=== PATIENT | female | born 1960 | race Caucasian/White ===

== ENCOUNTER 2023-04-07 15:44 | Outpatient (CLI) | payer OTHER, SELFPAY ==
--- NOTE | ~2023-04-07 | MM_ITS ---
EXAMINATION: MM screening ayo BI w kassandra HISTORY: Screening mammogram TECHNIQUE: Craniocaudal and mediolateral oblique 3-D tomosynthesis images were obtained and synthetic 2-D images were generated. CAD analysis was submitted and interpreted. COMPARISON: No prior mammogram is available for comparison at this institution. BREAST PARENCHYMAL COMPOSITION: The breasts are heterogeneously dense, which may obscure small masses . FINDINGS: RIGHT BREAST: An asymmetry is present in the posterior third of the lower breast on the mediolateral oblique view. LEFT BREAST: An asymmetry is present in the posterior third in line with the nipple axis on the medio lateral oblique view. IMPRESSION: 1. Bilateral breast asymmetries which may represent the patient's baseline however no comparison is c urrently available. 2. Comparison with prior mammograms is necessary. BI-RADS Category 0: Incomplete: Needs comparison with prior mammograms. Reviewed, dictated and finalized at location A. IMPRESSION: 1. Bilateral breast asymmetries which may represent the patient's baseline mack desmond no comparison is currently available. 2. Comparison with prior mammograms is necessary. BI-RADS Category 0: Incomplete: Needs comparison with prior mammograms.
== END 2023-04-07 15:45 | disposition home or self-care (01) ==
LOC: ANHIMG 15:47
PROVIDERS: PCP Family Medicine; Visit Provider Obstetrics & Gynecology
DX: Z12.31 Encounter for screening mammogram for malignant neoplasm of breast (principal); N64.89 Other specified disorders of breast
CPT/HCPCS: 77063; 77067

== ENCOUNTER 2024-02-23 10:18 | Outpatient (CLI) | payer MEDICARE, SELFPAY ==
--- NOTE | 2024-02-23 | ECG_ITS ---
Measurements Intervals [place] Rate: 63 P: 18 NC: 173 QRS: -24 QRSD: 104 T: 13 QT: 407 QTc: 418 Interpretive Statements SINUS RHYTHM BASELINE ARTIFACT LOW QRS VOLTAGE IN PRECORDIAL LEADS CANNOT RULE OUT ANTERIOR MYOCARDIAL INFARCTION, PROBABLY OLD BORDERLINE ECG NO PREVIOUS ECG AVAILABLE FOR COMPARISON Electronically Signed On 02-23-2024 14:37:38 CDT by Jeremiah Santos M.D.
== END 2024-02-23 10:19 | disposition home or self-care (01) ==
LOC: ANHLAB 10:35 → ANHCARD 10:36
PROVIDERS: PCP Internal Medicine
DX: R93.1 Abnormal findings on diagnostic imaging of heart and coronary circulation (principal); M20.10 Hallux valgus (acquired), unspecified foot
CPT/HCPCS: 93005

== ENCOUNTER 2024-03-25 10:11 | Emergency (ER) | payer MEDICARE, SELFPAY ==
[2024-03-25 10:21] VITALS: BP 130/71; PULSE 86; RESP 16; TEMP 36.9; O2SAT 100
--- NOTE | 2024-03-25 10:21 | ED.SKABFB ---
HPI - Skin/Abscess/Foreign Bdy General Chief complaint: Skin/Abscess/Foreign Body Stated complaint: RASH Time Seen by Provider: 03/25/24 10:19 Source: patient and RN notes reviewed Mode of arrival: ambulatory Limitations: no limitations History of Present Illness HPI narrative: 63-year-old female presents concern for rash to her left axilla. She reports she noticed it 2 days ago. She reports pain radiates to her left breast. She denies fever, aches, chills, sweats MD complaint: rash Related Data Home Medications Medication Instructions Recorded Confirmed estradiol 0.01% (0.1 mg/gram) 0.5 appful vaginal 3XW 01/28/24 03/25/24 vaginal cream ezetimibe 10 mg tablet 10 mg PO DAILY 01/28/24 03/25/24 Allergies Allergy/AdvReac Type Severity Reaction Status Date / Time No Known Allergies Allergy Mild Verified 03/25/24 10:18 Review of Systems Review of Systems: CONSTITUTIONAL: Denies malaise, chills, sweats, or fever. EYES: Denies redness, or discharge. ENT: Denies rhinorrhea, congestion, swollen lips, swollen tongue CARDIOVASCULAR: Denies chest pain, palpitations, or edema. RESPIRATORY: Denies cough or dyspnea. GASTROINTESTINAL: Denies abdominal pain, nausea, vomiting SKIN: Reports rash under her left axilla MUSCULOSKELETAL: Denies joint pain or myalgia. NEUROLOGIC: Denies headache. All systems reviewed & are unremarkable except as noted in HPI and below PMFSH Past Medical History Medical History (Updated 03/25/24 @ 10:28 by Niya Kimball NP) Hypertension Prediabetes Surgical History Surgical History (Updated 01/28/24 @ 09:02 by Dulce Rose CMA) History of abdominal hysterectomy (~2003) Family History Family History (Updated 01/28/24 @ 09:05 by Dulce Rose CMA) Father Hypertension Heart disease Testicular cancer Malignant neoplasm of prostate Mother Anxiety and depression Social History Social History (Updated 01/28/24 @ 09:15 by Dulce Rose CMA) Smoking status: Never smoker Additional smoking assessment comments: does not smoke Alcohol use details: occasional Substance use type: does not use Lack of Transportation: No Lack of Food: Never True Current Housing: I Have Housing Concerned About Future Housing: No Difficulty Paying Gas/Electric Bills: No Difficulty Paying for Meds: No Currently Unemployed: No Education: High School Diploma/GED Difficulty w/ Childcare or Family Care: No Comments At time of signature, agree with nursing past medical, surgical, social and family history. There is no relevant family history pertinent to the presenting complaint Exam Narrative: GENERAL: Well-appearing, well-nourished, and in no acute distress. HEAD: Normocephalic, atraumatic. EYES: PERRLA, conjunctivae clear, and EOMI. ENT: Mucous membranes moist. Oropharynx without edema, erythema or lesions. NECK: Supple. No lymphadenopathy CHEST: Clear to auscultation. No respiratory distress. HEART: Regular rate and rhythm. SKIN: Warm, dry. Zosteriform rash noted on the left axilla NEURO: Alert and oriented x3. PSYCH: Normal mood and affect Course Course Emergency Course: Patient is aware of diagnosis, understands and agrees to treatment plan. Anticipatory guidance given. Patient agrees to follow-up as directed and is aware of reasons to seek care at the emergency department. Portions of this record may have been created with voice recognition software Level of Care: Express Care Visit Vital Signs Vital signs: Reviewed. MDM - Skin/Abscess/Foreign Bdy MDM Narrative Medical decision making narrative: Does not appear at this time to be erythema multiforme, bullous, SJS, TEN; no evidence at this time to suggest RMSF, endocarditis or Lyme disease; patient looks well, nontoxic and is tolerating oral intake; no neurologic signs or symptoms; no headache, photophobia or neck pain; afebrile; appropriate for initial outpatient treatment; discussed the
== END 2024-03-25 10:34 | disposition home or self-care (01) ==
PROVIDERS: Emergency Provider Nurse Practitioner; PCP Internal Medicine
DX: B02.9 Zoster without complications (principal); I10 Essential (primary) hypertension; R73.03 Prediabetes
CPT/HCPCS: 99213; G0463

== ENCOUNTER 2024-05-26 13:39 | Outpatient (CLI) | payer MEDICARE, SELFPAY ==
--- NOTE | ~2024-05-26 | MM_ITS ---
EXAMINATION: MM screening ayo BI w kassandra HISTORY: Screening mammogram TECHNIQUE: Craniocaudal and mediolateral oblique 3-D tomosynthesis images were obtained and synthetic 2-D images were generated. CAD analysis was submitted and interpreted. COMPARISON: 04/07/2023, 02/12/2022, 01/30/2021 BREAST PARENCHYMAL COMPOSITION:Dense: The breasts are heterogeneously dense, which may obscure small masses. FINDINGS: No suspicious mass, calcification, or architectural distortion are identified in either jameel ast to suggest malignancy. There has been no suspicious interval change. IMPRESSION: No mammographic evidence of malignancy. Recommend routine screening mammography in one year. BI-RADS Category 1: Negative Reviewed, dictated and finalized at location .
== END 2024-05-26 13:40 | disposition home or self-care (01) ==
LOC: ANHIMG 13:40
PROVIDERS: PCP Internal Medicine; Visit Provider Nurse Practitioner
DX: Z12.31 Encounter for screening mammogram for malignant neoplasm of breast (principal)
CPT/HCPCS: 77063; 77067

== ENCOUNTER 2024-07-03 11:47 | Outpatient (CLI) | payer MEDICARE, SELFPAY ==
--- NOTE | ~2024-07-03 | DEXA_ITS ---
Bone Density Report Name: MARYSOL RENDON Age: 63 Sex: Female Ethnicity: White Date of : 1960 Indication: postmenopausal; screening for osteoporosis; height loss; hysterectomy; Referring Provider: DONNA LARA Study: Bone densitometry was performed. Exam Date: July 03, 2024 Accession number: [id number] Bone Density: Region BMD T-score Z-score Classification AP Spine(L1-L4) 0.951 -0.9 0.9 Normal Femoral Neck (Left) 0.603 -2.2 -0.7 Osteopenia Total Hip (Left) 0.772 -1.4 -0.1 Osteopenia Femoral Neck (Right) 0.685 -1.5 0.1 Osteopenia Total Hip (Right) 0.907 -0.3 1.0 Normal Total Hip Mean 0.839 -0.9 0.5 Normal World Health Organization criteria for BMD impression classify patients as: Normal (T-score at or above -1.0), Osteopenia (T-score between -1.0 and -2.5), or Osteoporosis (T-score at or below -2.5). 10-year Fracture Risk(1): Major Osteoporotic Fracture 10.0% Hip Fracture 1.8% Reported Risk Factors: [place] (), Neck BMD=0.603, BMI=19.9 (1) FRAX(R) Version 3.08. Fracture probability calculated for an untreated patient. Fracture probability may be lower if the patient has received treatment. Clinical Information Provided by Patient: Has used the following medications: Vitamin D Has the following medical conditions: Hysterectomy Patient maximum height was 67.0 No regular weight bearing exercise Does not regularly consume dairy products Drinks caffeinated beverages Onset of menses at age 12 Number of children 2 Impression: The patient has low bone mass, based on the Left Femoral Neck T-score. The patient has an estimated ten-year risk of hip fracture of 1.8% and an estimated ten-year risk of major fracture of 10%, based on the WHO FRAX algorithm. Discussion: BONE DENSITY IS LOW AT ONE OR MORE SKELETAL SITES. This patient's lowest T-score is low at one or more skeletal sites. It meets the World Health Organization's (WHO) criteria for ?low bone mass? (T-score between -1.0 and -2.5). The patient's 10-year risk of fracture as calculated by FRAX is less than the threshold where pharmacological therapy is recommended by the National Osteoporosis Foundation (NOF). However, all treatment decisions require clinical judgment and consideration of individual patient factors, including patient preferences, comorbidities, previous drug use, risk factors not captured in the FRAX model (e.g., frailty, falls, vitamin D deficiency, increased bone turnover, interval significant decline in bone density) and possible under or overestimation of fracture risk by FRAX. The patient should follow a healthful lifestyle (good nutrition with adequate calcium and vitamin D, and appropriate weight-bearing exercise). Follow-Up: Consider repeating this study in 2 to 3 years to reasse
== END 2024-07-03 11:48 | disposition home or self-care (01) ==
LOC: ANHIMG 11:48
PROVIDERS: PCP Internal Medicine; Visit Provider Obstetrics & Gynecology Gynecology
DX: M85.89 Other specified disorders of bone density and structure, multiple sites (principal); Z78.0 Asymptomatic menopausal state; Z13.820 Encounter for screening for osteoporosis
CPT/HCPCS: 77080

== ENCOUNTER 2025-03-02 08:26 | Outpatient (NON) | payer MEDICARE, SELFPAY ==
--- OUTSIDE RECORDS SUMMARY | 2025-03-02 08:34 | XMS_ITS | Clinical Summary ---
Author Organization [facility] Address [address] [place] [address] Phone Care Team Providers Care System Support Specialist Name Role Phone Anyi Keyes NP Primary Care Provider Allergies No known active allergies Medications hydroCHLOROthiaz america (HYDRODIURIL) 25 mg tablet Take 1 tablet (25 mg total) by mouth daily Active estradioL (ESTRACE) 0.01 % (0.1 mg/gram) vaginal cream Insert 2 g into the vagina daily Active Active Problems Problem Noted Date Diagnosed Date Varicose veins of bilateral lower extremities wi th pain 05/17/2024 Assessment & Plan (05/17/2024 8:58 AM CDT): Impression: Patient complains of achiness to bilateral lower extremities with her right worse than the left. She denies any history of DVTs/PEs or hypercoagulable state. She also denies any symptoms of claudication, ischemic rest pain or ulcerations to her lower extremity. Patient does not utilize compression therapy at this time. Patient has reticular veins to the right upper thigh and bilateral ankles. No varicosities are noted. Plan: Recommend compression stockings, 20 30 mmHg to be utilized daily. -patient would like referral to Dr. Godoy for further evaluation of reticular veins. -patient to follow up on an as-needed basis. Primary hypertension 05/17/2024 Assessment & Plan (05/17/2024 8:58 AM CDT): Impression: Chronic and stable. Plan: Continue hydrochlorothiazide. 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 Gender Identity Not on file Sexual Orientation Not on file Last Filed Vital Signs Vital Sign Reading Time Taken Comments Blood Pressure 134/83 05/17/2024 8:44 AM CDT Pulse 53 05/17/2024 8:44 AM CDT Temperature - - Respiratory Rate - - Oxygen Saturation 100% 05/17/2024 8:44 AM CDT Inhaled Oxygen Concentration - - Weight - - Height - - Body Mass Index - - Plan of Treatment Health Maintenance Due Date Last Done Comments Colon Cancer Screening-Colonoscopy 1960 Depression Screening 1960 Fall Risk Assessment 1960 Hepatitis C Screening 1960 Osteoporosis Screening-Bone Density Scan 1960 Hepatitis B Screening 1976 Pneumococcal vaccine 65+ (1 of 1 - PCV) 2008 Zoster Vaccine (1 of 2) 2008 Well Visit 65+ 2023 Breast Cancer Screening-Mammogram 05/03/2024 023, 04/07/2023 Covid-19 Vaccine (4 - 2023-2 5 season) 2024 05/12/2022, 07/01/2021, 06/10/2021 Influenza Vaccine (#1) 2024 , 09/24/2021, 09/19/2020, Additional history exists DTaP/Tdap/Td Vaccine (2 - Td or Tdap) 09/19/2029 09/19/2019 Insurance Care Teams System Support Specialist Relationship Specialty Start Date End Date Anyi Keyes NP PCP - General Nurse Practitioner 04/25/24
--- OUTSIDE RECORDS SUMMARY | 2025-03-02 08:34 | XMS_ITS | Referral Summary ---
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
== END 2025-03-02 08:27 | disposition home or self-care (01) ==
LOC: ANHGOSHLAB 08:26
PROVIDERS: PCP Nurse Practitioner; Visit Provider Student in an Organized Health Care Education/Training Program
DX: R39.9 Unspecified symptoms and signs involving the genitourinary system (principal)
CPT/HCPCS: 87077; 87086; 87186

== ENCOUNTER 2025-04-04 08:18 | Outpatient (CLI) | payer MEDICARE, SELFPAY ==
--- OUTSIDE RECORDS SUMMARY | 2025-04-04 08:30 | XMS_ITS | Data Portability ---
Author Organization [facility] [employer], Main Office Address [address] [place] [address] Assessment No assessment recorded. Plan of Treatment Reminders Order Date Submit Date Provider Last Modified By Organization Details Last Modified Time Details Appointments None recorded. Lab hemoglobin A1C, fingerstick 2022 023 [facility] [address], [place], [address], 09:04:30 Referral None recorded. Procedures None recorded. Surgeries None recorded. Imaging None recorded. Medication Orders ezetimibe 10 mg tablet 2022 023 [facility], [address] [place] [address], [address], 3 10:41:43 erythromyci n 5 mg/gram (0.5 %) eye ointment 2022 023 [facility], [address] [place], [address], 3 13:05:37 Patient TargetsNo targets recorded. Patient InstructionsNo instructions recorded. Reason for Referral None Reported. Results Created Date Observation Date Name Description Value Unit Range Abnormal Flag Note LastModifiedBy Organization Detail LastModifiedTime 10/13/20 22 10/14/2022 COMPR EHENS CECILE METAB OLIC PANEL glucose 107 mg/dL 65-99 high Fasti ng refer ence inter jeferson For someo ne witho ut known diabe keely, a gluco se value betwe en 100 and 125 mg/dL is consi stent with predi abete s and shoul d be confi rmed with a follo w-up test. Not Available [address], [address], 10/14/2022 04:16:36 10/13/20 22 10/14/2022 COMPR EHENS CECILE METAB OLIC PANEL urea nitrogen (BUN) 13 mg/dL 7-25 normal Not Available [address] [address] [place], [address], 10/14/2022 04:16:36 10/13/20 22 10/14/2022 COMPR EHENS CECILE METAB OLIC PANEL creatinine 0.59 mg/dL 0.50-1 .05 normal Not Available [address], [address], 10/14/2022 04:16:36 10/13/20 22 10/14/2022 COMPR EHENS CECILE METAB OLIC PANEL eGFR 101 mL/mi n/1.7 3m2 > or = 60 normal The eGFR is based on the CKD-E PI 2020 equat ion. To calcu late the new eGFR from a previ ous Creat inine or Cysta tin C resul t, go to https ://perez blackwell.garrick uribe/sara pham s/ kdoqi /gfr% 5Fcal culat or Not Available [address] [address] [place], [address], 10/14/2022 04:16:36 10/13/20 22 10/14/2022 COMPR EHENS CECILE METAB OLIC PANEL BUN/creatini ne ratio not applic able (calc ) 6-22 Not Available [address], [address], 10/14/2022 04:16:36 10/13/20 22 10/14/2022 COMPR EHENS CECILE METAB OLIC PANEL sodium 143 mmol/ L 135-14 6 normal Not Available [address] [place], [address], 10/14/2022 04:16:36 10/13/20 22 10/14/2022 COMPR EHENS CECILE METAB OLIC PANEL potassium 3.8 mmol/ L 3.5-5. 3 normal Not Available [address], [address], 10/14/2022 04:16:36 10/13/20 22 10/14/2022 COMPR EHENS CECILE METAB OLIC PANEL chloride 103 mmol/ L 98-110 normal Not Available [address], [address], 10/14/2022 04:16:36 10/13/20 22 10/14/2022 COMPR EHENS CECILE METAB OLIC PANEL carbon dioxide 28 mmol/ L 20-32 normal Not Available [address], [address], 10/14/2022 04:16:36 10/13/20 22 10/14/2022 COMPR EHENS CECILE METAB OLIC PANEL calcium 10.0 mg/dL 8.6-10 .4 normal Not Available [address], [address], 10/14/2022 04:16:36 10/13/20 22 10/14/2022 COMPR EHENS CECILE METAB OLIC PANEL protein, total 7.0 g/dL 6.1-8. 1 normal Not Available [address], [address], 10/14/2022 04:16:36 10/13/20 22 10/14/2022 COMPR EHENS CECILE METAB OLIC PANEL albumin 4.4 g/dL 3.6-5. 1 normal Not Available [address], [address], 10/14/2022 04:16:36 10/13/20 22 10/14/2022 COMPR EHENS CECILE METAB OLIC PANEL alkaline phosphatase 68 U/L 37-153 normal Not Available [address], [address], 10/14/2022 04:16:36 10/13/20 22 10/14/2022 COMPR EHENS CECILE METAB OLIC PANEL globulin 2.6 g/dL_ (calc ) 1.9-3. 7 normal Not Available [address], [address], 10/14/2022 04:16:36 10/13/20 22 10/14/2022 COMPR EHENS CECILE METAB OLIC PANEL albumin/glob ulin ratio 1.7 (calc ) 1.0-2. 5 normal Not Available [address], [address], 10/14/2022 04:16:36 10/13/20 22 10/14/2022 COMPR EHENS CECILE METAB OLIC PANEL bilirubin, total 0.4 mg/dL 0.2-1. 2 normal Not Available [address], [address], 10/14/2022 04:16:36 10/13/20 22 10/14/2022 COMPR EHENS CECILE METAB OLIC PANEL AST 18 U/L 10-35 normal Not Available [address], [address], 10/14/2022 04:16:36 10/13/20 22 10/14/2022 COMPR EHENS CECILE METAB OLIC PANEL ALT 11 U/L 6-29 normal Not Available [address], [address], 10/14/2022 04:16:36 10/13/20 22 10/14/2022 LIPID PANEL , STAND CLAIRE cholesterol, total 197 mg/dL <200 normal Not Available [address], [address], 10/14/2022 04:16:36 10/13/20 22 10/14/2022 LIPID PANEL , STAND CLAIRE HDL cholesterol 60 mg/dL > or = 50 normal Not Available [facility] [address] [place], [address], 10/14/2022 04:16:36 10/13/20 22 10/14/2022 LIPID PANEL , STAND CLAIRE triglyceride s 99 mg/dL <150 normal Not Available [address], [address], 10/14/2022 04:16:36 10/13/20 22 10/14/2022 LIPID PANEL , STAND CLAIRE LDL-choleste rol 116 mg/dL _(jose c) high Refer ence range : <100 Marcia able range <100 mg/dL for prima ry preve ntion ; <70 mg/dL for patie nts with CHD or diabe tic patie nts with > or = 2 CHD risk facto rs. LDL-C is now calcu lated using the Cass n-Hop kins calcu tiff n, which is a valid ated novel obinna john than the Fried raymon equat ion in the estim ation of LDL-C . Cass dela cruz SS et al. MEAGHAN. 2013; 310(1 9): 2061- 2068 (http ://ed ucati on.Bala burnett [employer]. com/f aq/FA Q164) Not Available [facility] [address] [place], [address], 10/14/2022 04:16:36 10/13/20 22 10/14/2022 LIPID PANEL , STAND CLAIRE chol/HDLC ratio 3.3 (calc ) <5.0 normal Not Available [facility] [address] [place] [address], [address], 10/14/2022 04:16:36 10/13/20 22 10/14/2022 LIPID PANEL , STAND CLAIRE non HDL cholesterol 137 mg/dL _(jose c) <130 high For patie nts with diabe keely plus 1 major ASCVD risk facto r, treat ing to a non-H DL-C goal of <100 mg/dL (LDL- C of <70 mg/dL ) is consi dered a thera peuti c optio n. Not Available [employer] [facility] [address] [address], [place], [address], 10/14/2022 04:16:36 12/09/1912/09/2022 COLOG UARD cologuard result reportable negati ve negati ve NEGAT CECILE TEST RESUL T. A negat cecile Colog uard resul t indic ates a low likel ihood that a color ectal cance r (CRC) or advan erica adeno ma (manuel omato us polyp s with more advan erica pre-m align ant featu res) is prese nt. The chanc e that a perso n with a negat cecile Colog uard test has a color ectal cance r is less than 1 in 1500 (nega tive predi ctive value >99.9 %) or has an advan erica adeno ma is less than 5.3% (nega tive predi ctive value 94.7% ). These data are based on a prosp ectiv e cross -sect ional study of ,00 0 indiv idual s at [place] ge risk for color ectal cance r who were scree mervat with both Colog uard and colon oscop y. (Harpreet Santiago et al, N Engl J Med 2014; 370(1 4):12 86-12 97) The jim l value (refe rence range ) for this assay is negat cecile. COLOG UARD RE-SC REENI NG RECOM MENDA TION: Perio dic color ectal cance r scree domingo is an impor tant part of preve ntive healt hcare for asymp tomat ic indiv idual s at [place] ge risk for color ectal cance r. Follo wing a negat cecile Colog uard resul t, the Ameri can Cance r Socie ty and U.S. Multi -Soci ety Task Force scree domingo guide lines recom mend a Colog uard re-sc shamar ng inter jeferson of 3 years . Refer ences : [place] can Cance r Socie ty Guide line for Color ectal Cance r Scree domingo: https ://perez w.can cer.o rg/ca ncer/ colon -rect al-ca ncer/ detec tion- diagn osis- stagi ng/ac s-rec ommen datio ns.ht ml.; Delroy MCKEON, Mohan ALMARAZ, Vijaya bullard JK, Color ectal Cance r Scree domingo: Recom menda tions for Physi cians and Patie nts from the U.S. Multi -Soci ety Task Force on Color ectal Cance r Scree domingo , Terence fournier rolog y 2017; 112:1 016-1 030. TEST DESCR IPTIO N: [place] site algor ithmi c eduin sis of stool DNA-b iomar kers with hemog lobin immun oassa y. Quant itati ve value s of indiv idual bioma rkers are not repor table and are not assoc iated with indiv idual bioma rker resul t refer ence range s. Colog uard is inten ded for color ectal cance r scree domingo of adult s of eithe r sex, 45 years or older , who are at [facility] for color ectal cance r (CRC) . Colog uard has been appro niecy for use by the U.S. FDA. The perfo rmanc e of Colog uard was estab lishe d in a cross secti onal study of [facility] adult s aged 50-84 . Colog uard perfo rmanc e in patie nts ages 45 to 49 years was estim ated by sub-g roup eduin sis of near- age group s. Colon oscop ies perfo rmed for a posit cecile resul t may find as the most clini taniya signi fican t lesio n: color ectal cance r [4.0% ], advan erica adeno ma (incl uding sessi le martha kishan polyp s great er than or equal to 1cm diame ter) [20%] or non- advan erica adeno ma [31%] ; or no color ectal neopl rafael [45%] . These estim ates are deriv ed from a prosp ectiv e cross -sect ional scree domingo study of ,00 0 [facility]ual [facility] ectal cance r who were scree mervat with both Colog uard and colon oscop y. (Harpreet Santiago et al, N Engl J Med 2014; 370(1 4):12 86-12 97.) Colog uard may produ ce a false negat cecile or false posit cecile resul t (no color ectal cance r or preca ncero us polyp prese nt at colon oscop y follo w up). A negat cecile Colog uard test resul t does not guara ntee the absen ce of CRC or advan erica adeno ma (pre- cance r). The curre nt Colog uard scree domingo inter jeferson is every 3 years . (Amer ican Cance r Socie ty and U.S. Multi -Soci ety Task Force ). Colog uard perfo rmanc e data in a 0 patie nt pivot al study using colon oscop y as the refer ence metho d can be acces sed at the follo wing locat ion: www.e xactl abs.c om/re anders . Addit ional descr iptio n of the Colog uard test proce ss, warni ngs and preca ution s can be found at www.c maryluu claire.c om. Not Available [employer] (Cologuard Orders Only) [address], [place], [address], 12/14/2022 17:27:21 12/24/19 23 12/24/2022 hemog lobin A1C, finge rstic k HgbA1C 5.8 Not Available [facility] [address] , [address], [place], [address], 12/23/2022 16:22:38 05/17/20 23 05/17/2023 hemog lobin A1C, finge rstic k HgbA1C 6 Not Available [facility] [address], [place], [address], 05/14/2023 09:28:26 04/07/2004/07/2023 MAMMO , scree domingo, bilat eral No observ ation record ed. [address], [place], [address], 04/08/2023 09:11:08 05/03/2004/07/2023 MAMMO , scree domingo, bilat eral No observ ation record ed. [address], [place], [address], 05/03/2023 14:34:41 Result Notes None recorded. Problems Name Problem SNOMED Code Status Onset Date Resolution Date Notes Provider Name and Address Organization Details Recorded Time Increased blood pressure 06629518 Active Not Available [facility] 3 07:33:06 Edema 315047068 Active Not Available [facility] 3 07:33:07 Hypertensi ve disorder 44914113 Active Not Available [facility] 3 07:33:07 Onychomyco sis 530623863 Active Not Available [facility] 3 07:33:07 Bunion 976800992 Active Not Available [facility] 3 07:33:07 Fibroma 532381543 Active Not Available [facility] 3 07:33:07 Foot pain 24735315 Active Not Available [facility] 3 07:33:07 Essential hypertensi on 24467165 Active Not Available [facility] 3 07:33:07 Capsulitis 6943359 Active Not Available [facility] 3 07:33:07 Prediabete s 778362643 Active 2022 Antwon Munguia MD [address], [place], [address] , [facility] [employer] 3 09:28:23 Upper respirator y infection 79978446 Active 2022 Antwon Munguia MD [address] [facility], [facility] [address], [place], [address] , [employer] [facility] 3 13:47:44 Blephariti s of right eyelid 0119310659668 03 Active 2022 Antwon Munguia MD [address] [facility] [address], [place], [address] , [employer] 3 13:04:29 Chalazion of upper eyelid 083322517 Active 2022 Antwon Munguia MD [address] [facility], [facility] [address], [place], [address] , [employer] 3 19:49:12 Hyperlipid emia 97119984 Active 2022 DELMAR Ledezma [address] [facility], [facility] [address], [place], [address] , [employer] 3 10:39:10 COVID-19 508844567 Active 2023 Priya Vigil RN [facility], [employer] 4 12:06:28 Problem Notes None recorded. Procedures Surgical History Date Name Laterality Status Provider Name and Address Organization Details Recorded Time 2 mammography completed Not Available [facility] 01/21/20 23 07:27:23 9 Colonoscopy completed Not Available [facility] 01/21/20 23 07:27:23 4 hysterectomy completed Not Available [facility] 023 07:27:23 Imaging Results Imaging Date Name Status LastModified by [facility] Details LastModified Time 04/07/2023 MAMMO, screening, bilateral completed [address] [place] [address], [address], 04/08/2023 09:11:08 04/07/2023 MAMMO, screening, bilateral completed [address], [address], 05/03/2023 14:34:41 Procedure Notes None recorded. Medical Equipment None Reported. Allergies No known drug allergies Medications Name Sig Start Date Stop Date Status Note LastModified by Organization Details LastModified Time amoxicillin 500 mg capsule TAKE 1 CAPSULE BY MOUTH THREE TIMES DAILY UNTIL GONE 09/15 completed Not Available Not Available Not Available clindamycin HCl 300 mg capsule 12/23 completed Not Available Not Available Not Available azithromyci n 250 mg tablet TAKE 2 TABLETS BY MOUTH ON DAY 1, AND THEN TAKE 1 TABLET BY MOUTH ONCE A DAY ON DAY 2 THROUGH DAY 5 12/23 completed Not Available Not Available Not Available ibuprofen 800 mg tablet Take 1 tablet 3 times a day by oral route as needed. active Not Available Not Available No t Available hydrocodone 5 mg-acetamin ophen 325 mg tablet TAKE 1 TABLET BY MOUTH EVERY 4 TO 6 HOURS NEEDED FOR PAIN 09/15 completed Not Available Not Available Not Available alendronate 70 mg tablet 09/15 completed Not Available Not Available Not Available ciprofloxac in 500 mg tablet TAKE 1 TABLET BY MOUTH TWICE DAILY DIRECTED FOR 7 DAYS active Not Available Not Available No t Available terbinafine HCl 250 mg tablet Take 1 tablet every day by oral route. 09/15 completed Not Available Not Available Not Available amoxicillin 875 mg tablet TAKE 1 TABLET BY MOUTH TWICE DAILY UNTIL ALL TAKEN 09/15 completed Not Available Not Available Not Available erythromyci n 5 mg/gram (0.5 %) eye ointment APPLY A 1 CM RIBBON INTO THE LOWER EYE LID OF THE AFFECTED EYE(S) 3 TIMES DAILY active Not Available Not Available No t Available neomycin-po lymyxin-dex ameth 3.5 mg/mL-10,00 0 unit/mL-0.1 % eye drops INSTILL 1 DROP INTO EACH EYE 4 TIMES DAILY FOR 1 WEEK 09/15 completed Not Available Not Available Not Available diclofenac sodium 75 mg tablet,tori yed release Take 1 tablet twice a day by oral route. 09/19 completed Not Available Not Available Not Available hydrochloro thiazide 25 mg tablet TAKE 1 TABLET BY MOUTH ONCE DAILY active Not Available Not Available No t Available estradiol 0.01% (0.1 mg/gram) vaginal cream INSERT 0.5 G INTRAVAGI MENDEZ THREE TIMES WEEKLY active Not Available Not Available No t Available methylpredn isolone 4 mg tablets in a dose pack TAKE BY MOUTH DIRECTED ON INSIDE OF PACKAGE 09/15 completed Not Available Not Available Not Available metformin ER 500 mg tablet,exte nded release 24 hr TAKE 1 TABLET BY MOUTH ONCE DAILY active Not Available Not Available No t Available amoxicillin 500 mg-potassiu m clavulanate 125 mg tablet TAKE 1 TABLET BY MOUTH EVERY 8 HOURS FOR 10 DAYS 11/17 completed Not Available Not Available Not Available ezetimibe 10 mg tablet TAKE 1 TABLET BY MOUTH ONCE DAILY IN THE MORNING 2023 active Not Available Not Available Not Avai lable nitrofurant oin monohydrate /macrocryst als 100 mg capsule TAKE 1 CAPSULE BY MOUTH TWICE DAILY FOR 3 DAYS 09/15 completed Not Available Not Available Not Available Trimo-Hugo Jelly 0.025 %-0.01 % vaginal APPLY LOCALLY EVERY WEEK active Not Available Not Available No t Available Flonase Allergy Relief 50 mcg/actuati on nasal spray,suspe nsion Inhale 2 sprays every day by intranasa l route. active Not Available Not Available No t Available Paxlovid 300 mg (150 mg x 2)-100 mg tablets in a dose pack Take 1 dose pk twice a day by oral route as directed for 5 days. active Not Available Not Available No t Available Vitals Date Recorded Body mass index (BMI) Body height Oxygen saturation Oxygen saturation in Arterial blood by Pulse oximetry Heart rate Body temperature Body weight Systolic blood pressure Diastolic blood pressure Provider Name and Address Organization Details Last Updated DateTime 2 20.5 kg/m2 170.18 cm 98 % 98 % 67 /min 97.5 [degF] 78583.6 g 122 mm[Hg] 80 mm[Hg] Not Available [facility] 3 07:28:59 Date Recorded Body mass index (BMI) Body height Oxygen saturation Oxygen saturation in Arterial blood by Pulse oximetry Heart rate Body temperature Body weight Systolic blood pressure Diastolic blood pressure Provider Name and Address Organization Details Last Updated DateTime 3 20 kg/m2 170.18 cm 98 % 98 % 74 /min 97.8 [degF] 85627.8 2 g 122 mm[Hg] 80 mm[Hg] Not Available [facility] 3 07:28:59 Date Recorded Body height Body mass index (BMI) Body weight Body temperature Heart rate Oxygen saturation Oxygen saturation in Arterial blood by Pulse oximetry Systolic blood pressure Diastolic blood pressure Provider Name and Address Organization Details Last Updated DateTime 3 170.18 cm 19.3 kg/m2 82971.8 6 g 97.5 [degF] 60 /min 98 % 98 % 100 mm[Hg] 68 mm[Hg] EMILY Garber [facility] [employer] [facility] 3 09:21:12 Date Recorded Body height Body mass index (BMI) Body weight Body temperature Heart rate Oxygen saturation Oxygen saturation in Arterial blood by Pulse oximetry Systolic blood pressure Diastolic blood pressure Provider Name and Address Organization Details Last Updated DateTime 3 170.18 cm 18.3 kg/m2 17030.3 1 g 97.4 [degF] 66 /min 98 % 98 % 116 mm[Hg] 68 mm[Hg] Chelsy lanier CMA [facility] [employer] [facility] 3 12:51:01 Date Recorded Body height Body mass index (BMI) Body weight Body temperature Heart rate Respiratory rate Oxygen saturation Oxygen saturation in Arterial blood by Pulse oximetry Systolic blood pressure Diastolic blood pressure Provider Name and Address Organization Details Last Updated DateTime 3 170.18 cm 18.3 kg/m2 72043.3 1 g 97.8 [degF] 66 /min 16 /min 98 % 98 % 126 mm[Hg] 78 mm[Hg] Ruthie Wood RN [facility] [employer] [facility] 3 10:29:54 Social History Question Answer Notes LastModified by [employer] Details LastModified Time Tobacco Smoking Status Never Smoker Alida [place], [place] [employer] [facility] 11/17/2023 10:25:48 What Type Of Diet Are You Following? REGULAR [id number] Information not available 01/20/2023 Sex: Unknown Functional Status Question Answer Note LastModified by [employer] Details LastModified Time What is your level of alcohol consumption? None [id number] Information not available 01/20/2023 Mental Status None recorded. Family History Relationship Description Onset Age of this Age Resolved Age Notes LastModified by Organization Details LastModified Time Father Heart disease [id number] Not available 01/20/2023 07:27:24 Mother Cardiac pacemaker in situ [email or web address] Not available 11/17 10:25:48 Medical History No medical history recorded. Gynecological HistoryNo gynecological history recorded. Obstetrics History GPAL:G 0 P 0 0 0 0 Immunizations Vaccine Type Date Status Note Provider Nam e and Address Organization Details Recorded Time Influenza, split virus, quadrivalent, PF 09/30/2022 completed Not Available [facility] 3 07:40:59 Influenza, split virus, quadrivalent, PF 09/24/2021 completed Not Available [facility] 3 07:40:59 Influenza, split virus, quadrivalent, PF 09/19/2020 completed Not Available [facility] 3 07:40:59 Influenza, split virus, quadrivalent, PF 09/19/2019 completed Not Available [facility] 3 07:40:59 Tdap 09/19/2019 completed Not Available [facility] 01/20/2023 07:40:59 Influenza, split virus, quadrivalent, PF 09/16/2018 completed Not Available [facility] 3 07:41:00 Past Encounters Encounter ID Performer Location Encounter Start Date Encounter Closed Date Diagnosis/Indication Diagnosis SNOMED-CT Code Diagnosis ICD10 Code Diagnosis Note [id number] Antwon Munguia MD [facility] [place] [address] [place] [address] 09/23/2021 00:00:00 09/23/2021 21:56:44 [id number] Antwon Munguia MD [facility] [place] [address] [place] [address] 12/01/2021 00:00:00 12/01/2021 21:58:59 [id number] Antwon Munguia MD [facility] [place] [address] [place] [address] 09/30/2022 00:00:00 09/30/2022 21:21:10 [id number] Antwon Munguia MD [facility] [place] [address] [place] [address] 12/23/2022 00:00:00 12/23/2022 21:47:12 [id number] Antwon Munguia MD [facility] [place] [address] [facility] [place] [address] 05/14/2023 09:07:10 05/14/2023 09:32:22 Prediabetes 926588104 R73.03 A1C is 6%. continue metformin. Watch carbs. Upper resp iratory infection 18570152 J06.9 SxRx and simply saline nasal spray and hot packs to face [id number] Antwon Munguia MD [facility] [place] [address] [address] [place] [address] 09/15/2023 12:25:04 09/15/2023 13:10:18 Blepharitis of right eyelid 6221965429 54779 H01.003 Warm compresses Zyrtec to use. Let me know how she is doing in 2 days if no better may need oral antibiotic Chalazion of upper eyelid 956853506 H00.19 May need oral antibiotic s if no better. [id number] Antwon Munguia MD [facility] [address] [place] [address] 11/17/2023 10:24:29 11/17/2023 10:45:32 [facility] [id number] E78.5 Health Concerns Section Related Observation LastModified by Organization Detai ls LastModified Time None Recorded Concern Status LastModified by Organization Details LastModified Time None Recorded Advance Directives Directive None Recorded Payers Encounter Date Sequence Insurance Name Policy Number Policy De Paz Covered Member ID De Paz Member ID Guarantor Name 05/14/2023 1 [facility] [id number] Miladys Prado [id number] Miladys Prado 09/15/2023 1 [id number] Miladys Prado [id number] Miladys Prado 11/17/2023 1 [employer] (MEDICARE REPLACEMENT/A DVANTAGE - HMO) [id number] Miladysjosr Arguetaon [id number] Miladys Prado Notes Date Note Type Note Provider Name and Address Organization Details Recorded Time 05/14/2023 text/html Here today for A 1C check. No problems with metformin.Has noticed some sinus issues. Has a sinus headache and has drainage in back of throat. She is feeling fine otherwise no complaints. Antwon Munguia MD [address] [address], [place], [address], [employer] 05/14/2023 13:48:46 09/15/2023 text/html Has swelling of right upper eyelid It started 3 days ago. It is tender and taking ibuprofen and warm compresses. She has a little PND. No colored mucus. Her eye was swollen shut this am. No conjunctival erythema or drainage. Antwon Munguia MD [address], [place], [address], [employer] 09/15/2023 19:50:41 11/17/2023 text/html still has a nodu le right upper lid , non-painful DELMAR Ledezma [address], [place], [address], [facility] 11/17/2023 13:13:41 OBGyn Episode No OBEpisode recorded.
--- OUTSIDE RECORDS SUMMARY | 2025-04-04 08:30 | XMS_ITS | Referral Summary ---
Author Organization 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
--- OUTSIDE RECORDS SUMMARY | 2025-04-04 08:30 | XMS_ITS | Clinical Summary ---
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
[2025-04-04 19:36] LABS: Basophils Percent Auto 0.7 % (0.2-1.2); Eosinophils Absolute Auto 0.1 K/mm3 (0-0.3); Eosinophils Percent Auto 1.2 % (0-4.4); Hematocrit 43.3 % (37.0-47.0); Hemoglobin 13.5 g/dL (12.0-15.0); Immature Granulocyte Absolute 0.02 K/mm3 (0.00-0.031); Immature Granulocyte Percent A 0.3 % (0-0.5); Lymphocytes Absolute Auto 1.78 K/mm3 (0.9-3.2); Lymphocytes Percent Auto 30.3 % (18.3-44.2); Mean Corpuscular HGB Conc 31.2 g/dl (32-36); Mean Corpuscular Hemoglobin 28.4 pg (26-34); Monocytes Absolute Auto 0.5 K/mm3 (0.1-0.6); Neutrophils Absolute Auto 3.5 K/mm3 (1.3-6.7); Neutrophils Percent Auto 59.5 % (45.5-73.1); Platelet Count Result 273 k/mm3 (150-375); Red Blood Count 4.76 M/mm3 (4.2-5.4); Red Cell Distribution Width 14.2 % (11.5-14.5); White Blood Count 5.9 K/mm3 (4.5-10.0)
[2025-04-04 20:15] LABS: Alanine Aminotransferase 18 U/L (6-35); Albumin Level 4.6 g/dL (3.5-5.1); Alkaline Phosphatase 67 U/L (38-126); Anion Gap 9 mmol/L (4-12); Aspartate Amino Transferase 58 U/L (14-36); Bilirubin,Total 0.5 mg/dL (0.2-1.3); Blood Urea Nitrogen 13 mg/dL (7-17); Calcium 9.5 mg/dL (8.4-10.2); Carbon Dioxide 30 mmol/L (22-30); Chloride 101 mmol/L (98-107); Cholesterol 190 mg/dL (0-200); Estimated Glomerular Filt Rate > 60; Glucose 76 mg/dL (65-110); HDL Direct 76 mg/dL; Potassium 3.5 mmol/L (3.4-5.0); Sodium 140 mmol/L (137-145); Triglycerides 95 mg/dL (<150)
[2025-04-04 20:32] LABS: LDL Cholesterol Direct 70 mg/dL
[2025-04-04 20:45] LABS: Vitamin D 25 Hydroxy 55.7 ng/mL
[2025-04-04 20:51] LABS: Hemoglobin A1C 5.7 % (<5.7)
== END 2025-04-04 08:19 | disposition home or self-care (01) ==
LOC: ANHGOSHLAB 08:19
PROVIDERS: Visit Provider Clinical Nurse Specialist
DX: R73.03 Prediabetes (principal); I10 Essential (primary) hypertension; E78.5 Hyperlipidemia, unspecified; R73.9 Hyperglycemia, unspecified; E55.9 Vitamin D deficiency, unspecified
CPT/HCPCS: 36415; 80053; 80061; 82040; 82306; 82310; 82565; 83036; 85025

== ENCOUNTER 2025-04-04 11:28 | Outpatient (CLI) | payer MEDICARE, SELFPAY ==
--- OUTSIDE RECORDS SUMMARY | 2025-04-04 11:31 | XMS_ITS | Clinical Summary ---
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
--- OUTSIDE RECORDS SUMMARY | 2025-04-04 11:31 | XMS_ITS | Referral Summary ---
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
[2025-04-04 13:46] LABS: Albumin Level 4.6 g/dL (3.5-5.1); Calcium 9.5 mg/dL (8.4-10.2); Estimated Glomerular Filt Rate > 60
== END 2025-04-04 11:29 | disposition home or self-care (01) ==
LOC: ANHLAB 11:28
PROVIDERS: PCP Internal Medicine; Visit Provider Internal Medicine
DX: M85.80 Other specified disorders of bone density and structure, unspecified site (principal); Z92.29 Personal history of other drug therapy
CPT/HCPCS: 36415; 82040; 82310; 82565

== ENCOUNTER 2025-04-19 10:22 | Outpatient (CLI) | payer MEDICARE, SELFPAY ==
--- OUTSIDE RECORDS SUMMARY | 2025-04-19 10:28 | XMS_ITS | Data Portability ---
Author Organization [facility] [employer], Main Office Address [address] [place] [address] Assessment No assessment recorded. Plan of Treatment Reminders Order Date Submit Date Provider Last Modified By Organization Details Last Modified Time Details Appointments None recorded. Lab hemoglobin A1C, fingerstick 2022 023 [facility] [address], [place], [address], 09:04:30 Referral None recorded. Procedures None recorded. Surgeries None recorded. Imaging None recorded. Medication Orders ezetimibe 10 mg tablet 2022 023 [facility], [address] [place] [address], [address], 3 10:41:43 erythromyci n 5 mg/gram (0.5 %) eye ointment 2022 023 [facility], [address] [place], [address], 3 13:05:37 Patient TargetsNo targets recorded. Patient [...] with a follo w-up test. Not Available [address], [address], 10/14/2022 04:16:36 10/13/20 22 10/14/2022 COMPR EHENS CECILE METAB OLIC PANEL urea nitrogen (BUN) 13 mg/dL 7-25 normal Not Available [address] [address] [place], [address], 10/14/2022 04:16:36 10/13/20 22 10/14/2022 COMPR EHENS CECILE METAB OLIC PANEL creatinine 0.59 mg/dL 0.50-1 .05 normal Not Available [address], [address], 10/14/2022 04:16:36 10/13/20 22 10/14/2022 COMPR EHENS [...] kdoqi /gfr% 5Fcal culat or Not Available [address] [address] [place], [address], 10/14/2022 04:16:36 10/13/20 22 10/14/2022 COMPR EHENS CECILE METAB OLIC PANEL BUN/creatini ne ratio not applic able (calc ) 6-22 Not Available [address], [address], 10/14/2022 04:16:36 10/13/20 22 10/14/2022 COMPR EHENS CECILE METAB OLIC PANEL sodium 143 mmol/ L 135-14 6 normal Not Available [address] [place], [address], 10/14/2022 04:16:36 10/13/20 22 10/14/2022 COMPR EHENS CECILE METAB OLIC PANEL potassium 3.8 mmol/ L 3.5-5. 3 normal Not Available [address], [address], 10/14/2022 04:16:36 10/13/20 22 10/14/2022 COMPR EHENS CECILE METAB OLIC PANEL chloride 103 mmol/ L 98-110 normal Not Available [address], [address], 10/14/2022 04:16:36 10/13/20 22 10/14/2022 COMPR EHENS CECILE METAB OLIC PANEL carbon dioxide 28 mmol/ L 20-32 normal Not Available [address], [address], 10/14/2022 04:16:36 10/13/20 22 10/14/2022 COMPR EHENS CECILE METAB OLIC PANEL calcium 10.0 mg/dL 8.6-10 .4 normal Not Available [address], [address], 10/14/2022 04:16:36 10/13/20 22 10/14/2022 COMPR EHENS CECILE METAB OLIC PANEL protein, total 7.0 g/dL 6.1-8. 1 normal Not Available [address], [address], 10/14/2022 04:16:36 10/13/20 22 10/14/2022 COMPR EHENS CECILE METAB OLIC PANEL albumin 4.4 g/dL 3.6-5. 1 normal Not Available [address], [address], 10/14/2022 04:16:36 10/13/20 22 10/14/2022 COMPR EHENS CECILE METAB OLIC PANEL alkaline phosphatase 68 U/L 37-153 normal Not Available [address], [address], 10/14/2022 04:16:36 10/13/20 22 10/14/2022 COMPR EHENS CECILE METAB OLIC PANEL globulin 2.6 g/dL_ (calc ) 1.9-3. 7 normal Not Available [address], [address], 10/14/2022 04:16:36 10/13/20 22 10/14/2022 COMPR EHENS CECILE METAB OLIC PANEL albumin/glob ulin ratio 1.7 (calc ) 1.0-2. 5 normal Not Available [address], [address], 10/14/2022 04:16:36 10/13/20 22 10/14/2022 COMPR EHENS CECILE METAB OLIC PANEL bilirubin, total 0.4 mg/dL 0.2-1. 2 normal Not Available [address], [address], 10/14/2022 04:16:36 10/13/20 22 10/14/2022 COMPR EHENS CECILE METAB OLIC PANEL AST 18 U/L 10-35 normal Not Available [address], [address], 10/14/2022 04:16:36 10/13/20 22 10/14/2022 COMPR EHENS CECILE METAB OLIC PANEL ALT 11 U/L 6-29 normal Not Available [address], [address], 10/14/2022 04:16:36 10/13/20 22 10/14/2022 LIPID PANEL , [place] cholesterol, total 197 mg/dL <200 normal Not Available [address], [address], 10/14/2022 04:16:36 10/13/20 22 10/14/2022 LIPID PANEL , [place] HDL cholesterol 60 mg/dL > or = 50 normal Not Available [facility] [address] [place], [address], 10/14/2022 04:16:36 10/13/20 22 10/14/2022 LIPID PANEL , [place] CLAIRE triglyceride s 99 mg/dL <150 normal Not Available [address], [address], 10/14/2022 04:16:36 10/13/20 22 10/14/2022 LIPID PANEL [...] 2061- 2068 (http ://ed ucati on.Bala burnett Nubleer Medias. com/f aq/FA Q164) Not Available [facility] [address] [place], [address], 10/14/2022 04:16:36 10/13/20 22 10/14/2022 LIPID PANEL , ST[place] CLAIRE chol/HDLC ratio 3.3 (calc ) <5.0 normal Not Available [facility] [address] [place] [address], [address], 10/14/2022 04:16:36 10/13/20 22 10/14/2022 LIPID PANEL , [place] CLAIRE non HDL cholesterol 137 mg/dL _(jose c) <130 high For patie nts with diabe keely plus 1 major ASCVD risk facto r, treat ing to a non-H DL-C goal of <100 mg/dL (LDL- C of <70 mg/dL ) is consi dered a thera peuti c optio n. Not Available [facility] [address], [place], [address], 10/14/2022 04:16:36 12/09/1912/09/2022 COLOG UARD cologuard result [...] of ,00 0 [facility]ual [facility] risk for color ectal cance r [...] asymp tomat ic indiv idual s at [facility] [facility] risk for color ectal cance r. [...] 112:1 016-1 030. TEST DESCR IPTIO N: [place] site algor ithmi c eduin sis of [...] years or older , who are at [facility] for color ectal cance r (CRC) . Colog uard has been appro niecy for use by the [place]. FDA. The perfo rmanc e of Colog uard was estab lishe d in a cross secti onal study of [facility] adult s aged 50-84 . Colog uard [...] of ,00 0 ind[facility]ual s at [facility] risk for color ectal cance r [...] at www.c maryluu claire.c om. Not Available [facility] (Cologuard Orders Only) [address], [place], [address], 12/14/2022 17:27:21 12/24/19 23 12/24/2022 hemog lobin A1C, finge rstic k HgbA1C 5.8 Not Available [facility] [address] , [address], [place], [address], 12/23/2022 16:22:38 05/17/20 23 05/17/2023 hemog lobin A1C, finge rstic k HgbA1C 6 Not Available [facility] [address], [place], [address], 05/14/2023 09:28:26 04/07/2004/07/2023 MAMMO , scree domingo, bilat eral No observ ation record ed. [address], [place], [address], 04/08/2023 09:11:08 05/03/2004/07/2023 MAMMO , scree domingo, bilat eral No observ ation record ed. [address], [place], [address], 05/03/2023 14:34:41 Result Notes None recorded. Problems Name Problem SNOMED Code Status Onset Date Resolution Date Notes Provider Name and Address Organization Details Recorded Time Increased blood pressure 66508716 Active Not Available [facility] 3 07:33:06 Edema 786509691 Active Not Available [facility] 3 07:33:07 Hypertensi ve disorder 63453786 Active Not Available [facility] 3 07:33:07 Onychomyco sis 906733513 Active Not Available [facility] 3 07:33:07 Bunion 357337143 Active Not Available [facility] 3 07:33:07 Fibroma 107609454 Active Not Available [facility] 3 07:33:07 Foot pain 18511571 Active Not Available [facility] 3 07:33:07 Essential hypertensi on 60087921 Active Not Available [facility] 3 07:33:07 Capsulitis 2294366 Active Not Available [facility] 3 07:33:07 Prediabete s 579191170 Active 2022 Antwon Munguia MD [address], [place], [address] , [facility] [employer] 3 09:28:23 Upper respirator y infection 49970049 Active 2022 Antwon Munguia MD [address] [facility], [facility] [address], [place], [address] , [employer] 3 13:47:44 Blephariti s of right eyelid 3374329067367 03 Active 2022 Antwon Munguia MD [address] [facility], [facility] [address], [place], [address] , [employer] 3 13:04:29 Chalazion of upper eyelid 682235241 Active 2022 Antwon Munguia MD [address] [facility], [facility] [address], [place], [address] , [employer] 3 19:49:12 Hyperlipid emia 01927266 Active 2022 DELMAR Ledezma [address] [facility], [address] [address], [place], [address] , [employer] 3 10:39:10 COVID-19 309268379 Active 2023 Priya [facility]igil [facility], [employer] [facility] [employer] 4 12:06:28 Problem Notes None recorded. Procedures Surgical History Date Name Laterality Status Provider Name and Address Organization Details Recorded Time 2 mammography completed Not Available [facility] 01/21/20 23 07:27:23 9 Colonoscopy completed Not Available [facility] 01/21/20 23 07:27:23 4 hysterectomy completed Not Available [facility] 023 07:27:23 Imaging Results None recorded. Procedure Notes None recorded. Medical Equipment None [...] % 98 % 74 /min 97.8 [degF] 06295.8 2 g 122 mm[Hg] 80 mm[Hg] Not Available [facility] 3 07:28:59 Date Recorded Body height Body mass index (BMI) Body weight Body temperature Heart rate Oxygen saturation Oxygen saturation in Arterial blood by Pulse oximetry Systolic blood pressure Diastolic blood pressure Provider Name and Address Organization Details Last Updated DateTime 3 170.18 cm 19.3 kg/m2 43072.8 6 g 97.5 [degF] 60 /min 98 % 98 % 100 mm[Hg] 68 mm[Hg] EMILY Garber [facility] 3 09:21:12 Date Recorded Body height Body mass index (BMI) Body weight Body temperature Heart rate Oxygen saturation Oxygen saturation in Arterial blood by Pulse oximetry Systolic blood pressure Diastolic blood pressure Provider Name and Address Organization Details Last Updated DateTime 3 170.18 cm 18.3 kg/m2 86037.3 1 g 97.4 [degF] 66 /min 98 % 98 % 116 mm[Hg] 68 mm[Hg] Chelsy lanier CMA [facility] [employer] [facility] 3 12:51:01 Date Recorded Body mass index (BMI) Body height Oxygen saturation Oxygen saturation in Arterial blood by Pulse oximetry Heart rate Body temperature Body weight Systolic blood pressure Diastolic blood pressure Provider Name and Address Organization Details Last Updated DateTime 2 20.5 kg/m2 170.18 cm 98 % 98 % 67 /min 97.5 [degF] 85946.6 g 122 mm[Hg] 80 mm[Hg] Not Available [facility] 3 07:28:59 Date Recorded Body height Body mass index (BMI) Body weight Body temperature Heart rate Respiratory rate Oxygen saturation Oxygen saturation in Arterial blood by Pulse oximetry Systolic blood pressure Diastolic blood pressure Provider Name and Address Organization Details Last Updated DateTime 3 170.18 cm 18.3 kg/m2 58125.3 1 g 97.8 [degF] 66 /min 16 /min 98 % 98 % 126 mm[Hg] 78 mm[Hg] Ruthie Wood RN [facility] [employer] [facility] 3 10:29:54 Social History Question Answer Notes LastModified by [employer] Details LastModified Time Tobacco Smoking Status Never Smoker Alida santana [facility] [employer] [facility] 11/17/2023 10:25:48 What Type Of Diet Are You Following? REGULAR [id number] Information not available 01/20/2023 Sex: Unknown Functional Status Question Answer Note LastModified by [employer] Details LastModified Time What is your level of alcohol consumption? None [id number] Information not available 01/20/2023 Mental Status None recorded. Family History Relationship Description Onset Age of this Age Resolved Age Notes LastModified by Organization Details LastModified Time Father Heart disease [id number] Not available 01/20/2023 07:27:24 Mother Cardiac pacemaker in situ [email or web address] Not available 11/17 10:25:48 Medical History No medical history recorded. Gynecological HistoryNo gynecological history recorded. Obstetrics History GPAL:G 0 P 0 0 0 0 Immunizations Vaccine Type Date Status Note Provider Nam e and Address Organization Details Recorded Time Influenza, split virus, quadrivalent, PF 09/30/2022 completed Not Available [facility] 3 07:40:59 Influenza, split virus, quadrivalent, PF 09/24/2021 completed Not Available [facility] 3 07:40:59 Influenza, split virus, quadrivalent, PF 09/19/2020 completed Not Available [facility] 3 07:40:59 Influenza, split virus, quadrivalent, PF 09/19/2019 completed Not Available [facility] 3 07:40:59 Tdap 09/19/2019 completed Not Available [facility] 01/20/2023 07:40:59 Influenza, split virus, quadrivalent, PF 09/16/2018 completed Not Available [facility] 3 07:41:00 Past Encounters Encounter ID Performer Location Encounter Start Date Encounter Closed Date Diagnosis/Indication Diagnosis SNOMED-CT Code Diagnosis ICD10 Code Diagnosis Note [id number] Antwon Munguia MD [facility] [address] [place] [address] 09/23/2021 00:00:00 09/23/2021 21:56:44 [id number] Antwon Munguia MD [facility] [place] [address] [place] [address] 12/01/2021 00:00:00 12/01/2021 21:58:59 [id number] Antwon Munguia MD [facility] [place] [address] [place] [address] 09/30/2022 00:00:00 09/30/2022 21:21:10 [id number] Antwon Munguia MD [facility] [place] [address] [place] [address] 12/23/2022 00:00:00 12/23/2022 21:47:12 [id number] Antwon Munguia MD [facility] [place] [address] [place] [address] 05/14/2023 09:07:10 05/14/2023 09:32:22 Prediabetes 731588195 R73.03 A1C is 6%. continue metformin. Watch carbs. Upper resp iratory infection 21082775 J06.9 SxRx and simply saline nasal spray and hot packs to face [id number] Antwon Munguia MD [facility] [address] [facility] [place] [address] 09/15/2023 12:25:04 09/15/2023 13:10:18 Blepharitis of right eyelid 8289473135 05331 H01.003 Warm compresses Zyrtec to use. Let me know how she is doing in 2 days if no better may need oral antibiotic Chalazion of upper eyelid 538423656 H00.19 May need oral antibiotic s if no better. [id number] Antwon Munguia MD [facility] [place] [address] 11/17/2023 10:24:29 11/17/2023 10:45:32 [facility] 85244046 E78.5 Health Concerns Section Related Observation LastModified by Organization Detai ls LastModified Time None Recorded Concern Status LastModified by Organization Details LastModified Time None Recorded Advance Directives Directive None Recorded Payers Encounter Date Sequence Insurance Name Policy Number Policy De Paz Covered Member ID De Paz Member ID Guarantor Name 05/14/2023 1 [facility] [id number] Miladys Prado [id number] Miladys Prado 09/15/2023 1 [facility] [id number] Miladys Prado [id number] Miladys Prado 11/17/2023 1 [facility] (MEDICARE REPLACEMENT/A DVANTAGE - HMO) [id number] Miladys Prado [id number] Miladys Prado Notes Date Note Type Note Provider Name and Address Organization Details Recorded Time 05/14/2023 text/html Here today for A 1C check. No problems with metformin.Has noticed some sinus issues. Has a sinus headache and has drainage in back of throat. She is feeling fine otherwise no complaints. Antwon Munguia MD [address] [place] [address], [facility] [address], [place], [address], [facility] [employer] [facility] 05/14/2023 13:48:46 09/15/2023 text/html Has swelling of right upper eyelid It started 3 days ago. It is tender and taking ibuprofen and warm compresses. She has a little PND. No colored mucus. Her eye was swollen shut this am. No conjunctival erythema or drainage. Antwon Munguia MD [address], [facility] [address], [place], [address], [facility] [employer] [facility] 09/15/2023 19:50:41 11/17/2023 text/html still has a nodu le right upper lid , non-painful DELMAR Ledezma [address], [facility] [address], [place], [address], [facility] [employer] [facility] 11/17/2023 13:13:41 OBGyn Episode No OBEpisode recorded.
--- OUTSIDE RECORDS SUMMARY | 2025-04-19 10:28 | XMS_ITS | Referral Summary ---
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
--- OUTSIDE RECORDS SUMMARY | 2025-04-19 10:28 | XMS_ITS | Clinical Summary ---
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
--- NOTE | 2025-04-19 10:31 | ECG_ITS ---
Test Date: 2025-04-19 10:49:32 Measurements Intervals [place] Rate: 66 P: 25 OK: 183 QRS: -26 QRSD: 82 T: 19 QT: 385 QTc: 405 Interpretive Statements SINUS RHYTHM LOW QRS VOLTAGE IN PRECORDIAL LEADS [QRS DEFLECTION < 1.0 mV IN CHEST LEADS] POSSIBLE ANTERIOR MYOCARDIAL INFARCTION [30 ms Q WAVE IN V3/V4, OR R < 0.2 mV IN V4], PROBABLY OLD NONSPECIFIC T WAVE ABNORMALITY No previous ECG available for comparison Electronically Signed On 04-20-2025 11:02:40 CDT by Eduardo Hicks M.D.
== END 2025-04-19 10:23 | disposition home or self-care (01) ==
LOC: ANHSURGERY 10:25
PROVIDERS: PCP Internal Medicine; Visit Provider Orthopaedic Surgery
DX: Z01.810 Encounter for preprocedural cardiovascular examination (principal); I10 Essential (primary) hypertension
CPT/HCPCS: 93005

== ENCOUNTER 2025-05-03 02:29 | Day surgery (SDC) | payer MEDICARE, SELFPAY ==
[2025-04-17 08:36] VITALS: BMI 20.5
--- NOTE | 2025-04-17 09:03 | PC.NURSE ---
Report to the Outpatient Waiting Room, entrance under the green pavilion located off [facility], at time ___6:00AM____ on date ___05/03/25____. Planned Procedure Time: ___7:30AM___.? Time changes happen often and if your time is changed the preop area will call you the afternoon before. - You and your visitor will be asked to self-screen and do not enter if you have any COVID symptoms. Please call surgeon if you need to reschedule. - A mask is optional within the hospital at this time. Patients may have clear liquids (water, carbonated beverages, clear teas, apple juice) until 3 hours prior to surgery (4:30AM) with a maximum of 20 ounces. - No food from midnight until time of surgery and no smoking, or chewing tobacco (or any form of nicotine). No chewing gum, candy or mints. Take only the following medications with a SIP of water on the morning of surgery: NONE DO NOT STOP ANY OF YOUR OTHER PRESCRIPTION MEDICATIONS PRIOR TO SURGERY EXCEPT THE FOLLOWING Hold all vitamins and supplements for 3 days per anesthesiologist.- LAST DOSE 04/29/25. Medications to discontinue per physician __HOLD ALL NSAIDS(IBUPROFEN) 7 DAYS PRE- OP PER DR FRAIRE Date to take last dose 04/25/25 Please no make-up, nail estonian, hairspray, perfume, deodorant, or body powder the day of surgery.? No jewelry (including any body piercings) or valuables the day of surgery, leave them at home.? Please take a shower or bath the night before, or the morning of, surgery with an antibacterial soap.? Wear comfortable, loose fitting clothing.? - Jewelry must be removed prior to entering the operating room.? Rings and piercings that are not removed may be cut off. - The hospital will not accept responsibility for valuables.? - Please leave all valuables, including medications, at home the day of surgery. If you are going home after surgery, a licensed local city driver must drive you home.? - NO public transportation without another adult if you receive anesthesia. - We recommend that an adult stay with you for 24 hours following discharge. - We also recommend that you do not drive, make important decision, drink alcoholic beverages, or take any drugs that were not prescribed by your health care provider for at least 24 hours after your discharge time. Follow any additional instructions given to you from your surgeon. Telephone instructions given to ___PATIENT and asked if any additional questions and then verbalized understanding. Patient advised to call surgeon office or pre surgery nurse liaison [phone] if any additional questions.
--- NOTE | 2025-05-02 11:42 | P.HP_ITS ---
H&P: HPI History of Present Illness Date/Time: 05/02/25 11:42 Chief Complaint: left hallux deformity and foot pain Narrative: 64-year-old woman with several year history of increasing left hallux deformity and pain. Pain worse with weight-bearing, activity and shoe wear. Pain on a daily basis and affects functional level. She has tried treatment with bracing, strapping, accommodative shoes, orthotics and inserts, exercises and activity modification. Still with daily pain. Presents for operative treatment. Review of Systems Constitutional: Constitutional: Denies fever(s) Eyes: Eyes: Denies blurry vision ENT: Reports Normal hearing present Cardiovascular: Cardiovascular: Denies chest pain and Denies dyspnea Respiratory: Respiratory: Denies dyspnea and Denies wheezing Gastrointestinal: Gastrointestinal: Denies abdominal pain Genitourinary: Genitourinary: Denies urinary urgency Musculoskeletal: Musculoskeletal: Reports as per HPI and Denies numbness Integumentary/Breasts: Skin/Breast: Denies changing lesions and Denies sores Neurologic: Reports Normal hearing present, Denies behavioral changes, Denies confusion, Denies numbness and Denies convulsions Psychiatric: Psychiatric: Denies behavioral changes, Denies confusion and Denies hallucinations Endocrine: Endocrine: Denies heat intolerance Hematologic/Lymphatic: Hematologic/Lymphatic: Denies easy bleeding Allergic/Immunologic: Allergic/Immunologic: Denies wheezing PMFSH Past Medical History Medical History Left foot pain Acquired hallux valgus of left foot Prediabetes Hypertension Surgical History Surgical History History of abdominal hysterectomy (~2003) Family History Family History Father Hypertension Heart disease Testicular cancer Malignant neoplasm of prostate Mother Anxiety and depression Social History Social History Social History: caffeine use Smoking status: Never smoker Additional smoking assessment comments: does not smoke Alcohol use details: occasional Substance use type: does not use Do You Feel Safe in your Home?: Yes Lack of Transportation: No Lack of Food: Never True Current Housing: I Have Housing Concerned About Future Housing: No Difficulty Paying Gas/Electric Bills: No Difficulty Paying for Meds: No Currently Unemployed: No Education: High School Diploma/GED Difficulty w/ Childcare or Family Care: No Living arrangements: with family Additional living arrangements comments: HUSB Spiritual care concerns: No Meds Home Medications and Allergies Home Medications ?Medication ?Instructions ?Recorded ?Confirmed ?Type estradiol 0.01% (0.1 mg/gram) 0.5 appful vaginal 3XW 01/28/24 04/17/25 History vaginal cream ezetimibe 10 mg tablet 10 mg PO DAILY #90 tabs 06/09/24 04/17/25 Rx hydrochlorothiazide 25 mg tablet See Rx Instructions .Route 01/24/25 04/17/25 Rx .COMPLEX #90 tabs biotin 10,000 mcg chewable tablet 10,000 mcg PO DAILY 04/17/25 04/17/25 History (Hair, Skin and Nails (biotin)) cholecalciferol (vitamin D3) 50 2,000 unit PO DAILY 04/17/25 04/17/25 History mcg (2,000 unit) capsule ibuprofen 200 mg capsule 200 mg PO Q6H PRN pain 04/17/25 04/17/25 History Allergies Allergy/AdvReac Type Severity Reaction Status Date / Time No Known Allergies Allergy Mild Verified 04/17/25 08:31 Exam Const: General: healthy appearing; No in distress or confusion Orientation/consciousness: oriented to person, oriented to place, oriented to time and No confusion HENMT: Head: normal to inspection, normocephalic and atraumatic Eyes: Conjunctivae: conjunctivae normal Sclera: sclerae normal Neck: Neck: supple and nontender Resp: Effort & Inspection: normal respiratory effort and no audible wheezes Cardio: Rhythm: regular rhythm Skin: General skin exam: no rashes or lesions noted Neuro: General: oriented to person, oriented to place, oriented to time and No confusion Extrem: Right upper extremity: normal to inspection Left upper extremity: normal to inspection Right lower extremity: ankle Details: normal to inspection, normal ROM ( dorsiflexion 5?, plantar flexion 45?, inversion 20?, eversion 10?) and other ( good stability all directions); no tenderness, no swe lling and no ecchymosis and foot Details: normal to inspection, toes with normal ROM, vascular exam Details: dorsalis pedis pulse present and normal capillary refill, tendon exam Details: active flexion normal and active extension normal and motor-sensory exam Details: light-touch normal Location: in all toes Left lower extremity: ankle Details: normal ROM ( dorsiflexion 5?, plantar flexion 45?, inversion 20?, eversion 10?.); no tenderness and no swelling and foot Details: normal capillary refill, abnormal to inspection Details: a deformity Location: of the hallux valgus (moderate), tenderness Location: of the great toe Location: at the MTP joint (medial emminence), abnormal ROM of toe (hallux mtp df 40, pf 20), vascular exam (2+DP pulse, good cap refill all toes), tendon exam (FHL/EHL 5/5) and motor-sensory exam two point discrimination normal; no crepitus Psych: Affect: normal affect Assessment and Plan Assessment and plan (1) Acquired hallux valgus of left foot: Code(s): M20.12 - Hallux valgus (acquired), left foot Status: Acute Assessment and Plan: Left hallux deformity pain. History, physical exam and radiographs reviewed with the patient. Discussed the condition, nature, etiology and course of natural history with the patient. Treatment options including surgical and nonoperative treatment were reviewed. Risks and benefits of each as well as alternatives reviewed. The patient's questions were answered. Conservative treatment ice, compression and elevation. discussed use of arch support inserts. She is having pain on a daily basis in her deformity is increasing. She would like to proceed with surgical treatment. Discussed early degenerative changes on radiographs. She has declined a MTP arthrodesis. She would like to proceed with correction of the deformity with salvage of the joint. Discussed risk of further degenerative changes in the future. Plan Discussed nonoperative and operative treatment options with the patient. Risks and benefits of each as well as alternatives were reviewed. All of the patient's questions were answered. The risks of surgery reviewed including but not limited to: Neurovascular damage, wound complication, infection, blood clot, pulmonary embolus, stroke, myocardial infarction, and anesthetic risks up to and including . Continued pain and possible dysfunction were explained. Specific risks of the procedure including later recurrence of deformity. No guarantees were offered. If hardware used, discussed risk of failure/ breakage and possible need for removal. If complications occur, the patient understands the need for further treatment, possible further surgery. Patient verbalizes understanding and wishes to proceed. PLAN: Left hallux valgus correction with metatarsal and phalangeal osteotomies. (2) Left foot pain: Code(s): M79.672 - Pain in left foot Status: Acute
[2025-05-03] VITALS (7 sets, daily range): BP systolic 119–146; BP diastolic 62–89; PULSE 70–96; RESP 14–17; TEMP 36.1–36.8; O2SAT 97–100; BMI 20.4
--- NOTE | ~2025-05-03 | XR_ITS ---
EXAMINATION: XR surgery orthopedic DATE: 05/03/2025 09:00 INDICATION: Left foot hallux valgus correction TECHNIQUE: 3 fluoroscopic images of the left foot were obtained during procedure performed by Dr. Fiona alcala. Radiologist was not present for the imaging or procedure. The amount of fluoroscopy time used during this procedure was 1.0 minutes. Total DAP was 4.85 mGym^2. COMPARISON: 02/27/2025 FINDINGS: Postoperative changes including bunionectomy at the medial head of the first metatarsal, re alignment osteotomy at the neck of the first metatarsal and medial sided closing wedge osteotomy with staple fixation at the base of the first proximal phalanx. I'm to the axis of the first ray appears near-anatomic. No other fractures identified. 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 IMPRESSION: 1. Expected appearance post bunionectomy and hallux valgus correction with realignment osteotomy is a t the first metatarsal and proximal phalanx. See procedure note for further detail. Reviewed, dictated and finalized at location A. IMPRESSION: 1. Expected appearance post bunionectomy and hallux valgus correction with real ignment osteotomy is at the first metatarsal and proximal phalanx. See procedur e note for further detail.
--- OUTSIDE RECORDS SUMMARY | 2025-05-03 02:32 | XMS_ITS | Referral Summary ---
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
--- OUTSIDE RECORDS SUMMARY | 2025-05-03 02:32 | XMS_ITS | Clinical Summary ---
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
--- OUTSIDE RECORDS SUMMARY | 2025-05-03 02:32 | XMS_ITS | Data Portability ---
Author Organization [facility], Main Office Address [address] [place] [address] Assessment No assessment recorded. Plan of Treatment Reminders Order Date Submit Date Provider Last Modified By Organization Details Last Modified Time Details Appointments None recorded. Lab hemoglobin A1C, fingerstick 2022 023 [facility] [address], [place], [address], 09:04:30 Referral None recorded. Procedures None recorded. Surgeries None recorded. Imaging None recorded. Medication Orders ezetimibe 10 mg tablet 2022 023 [facility], [address] [place] [address], [address], 3 10:41:43 erythromyci n 5 mg/gram (0.5 %) eye ointment 2022 023 [facility], [address] [place], [address], 3 13:05:37 Patient TargetsNo targets recorded. Patient [...] with a follo w-up test. Not Available [address], [address], 10/14/2022 04:16:36 10/13/20 22 10/14/2022 COMPR EHENS CECILE METAB OLIC PANEL urea nitrogen (BUN) 13 mg/dL 7-25 normal Not Available [place] [address] [place], [address], 10/14/2022 04:16:36 10/13/20 22 10/14/2022 COMPR EHENS CECILE METAB OLIC PANEL creatinine 0.59 mg/dL 0.50-1 .05 normal Not Available [address], [address], 10/14/2022 04:16:36 10/13/20 22 10/14/2022 COMPR EHENS [...] kdoqi /gfr% 5Fcal culat or Not Available [address] [place] [address] [place], [address], 10/14/2022 04:16:36 10/13/20 22 10/14/2022 COMPR EHENS CECILE METAB OLIC PANEL BUN/creatini ne ratio not applic able (calc ) 6-22 Not Available [address], [address], 10/14/2022 04:16:36 10/13/20 22 10/14/2022 COMPR EHENS CECILE METAB OLIC PANEL sodium 143 mmol/ L 135-14 6 normal Not Available [address] [place], [address], 10/14/2022 04:16:36 10/13/20 22 10/14/2022 COMPR EHENS CECILE METAB OLIC PANEL potassium 3.8 mmol/ L 3.5-5. 3 normal Not Available [address], [address], 10/14/2022 04:16:36 10/13/20 22 10/14/2022 COMPR EHENS CECILE METAB OLIC PANEL chloride 103 mmol/ L 98-110 normal Not Available [address], [address], 10/14/2022 04:16:36 10/13/20 22 10/14/2022 COMPR EHENS CECILE METAB OLIC PANEL carbon dioxide 28 mmol/ L 20-32 normal Not Available [address], [address], 10/14/2022 04:16:36 10/13/20 22 10/14/2022 COMPR EHENS CECILE METAB OLIC PANEL calcium 10.0 mg/dL 8.6-10 .4 normal Not Available [address], [address], 10/14/2022 04:16:36 10/13/20 22 10/14/2022 COMPR EHENS CECILE METAB OLIC PANEL protein, total 7.0 g/dL 6.1-8. 1 normal Not Available [address], [address], 10/14/2022 04:16:36 10/13/20 22 10/14/2022 COMPR EHENS CECILE METAB OLIC PANEL albumin 4.4 g/dL 3.6-5. 1 normal Not Available [address], [address], 10/14/2022 04:16:36 10/13/20 22 10/14/2022 COMPR EHENS CECILE METAB OLIC PANEL alkaline phosphatase 68 U/L 37-153 normal Not Available [address], [address], 10/14/2022 04:16:36 10/13/20 22 10/14/2022 COMPR EHENS CECILE METAB OLIC PANEL globulin 2.6 g/dL_ (calc ) 1.9-3. 7 normal Not Available [address], [address], 10/14/2022 04:16:36 10/13/20 22 10/14/2022 COMPR EHENS CECILE METAB OLIC PANEL albumin/glob ulin ratio 1.7 (calc ) 1.0-2. 5 normal Not Available [address], [address], 10/14/2022 04:16:36 10/13/20 22 10/14/2022 COMPR EHENS CECILE METAB OLIC PANEL bilirubin, total 0.4 mg/dL 0.2-1. 2 normal Not Available [address], [address], 10/14/2022 04:16:36 10/13/20 22 10/14/2022 COMPR EHENS CECILE METAB OLIC PANEL AST 18 U/L 10-35 normal Not Available [address], [address], 10/14/2022 04:16:36 10/13/20 22 10/14/2022 COMPR EHENS CECILE METAB OLIC PANEL ALT 11 U/L 6-29 normal Not Available [address], [address], 10/14/2022 04:16:36 10/13/20 22 10/14/2022 LIPID PANEL , [place] cholesterol, total 197 mg/dL <200 normal Not Available [address], [address], 10/14/2022 04:16:36 10/13/20 22 10/14/2022 LIPID PANEL , [place] HDL cholesterol 60 mg/dL > or = 50 normal Not Available [facility] [address] [place], [address], 10/14/2022 04:16:36 10/13/20 22 10/14/2022 LIPID PANEL , [place] triglyceride s 99 mg/dL <150 normal Not Available [address], [address], 10/14/2022 04:16:36 10/13/20 22 10/14/2022 LIPID PANEL [...] 2061- 2068 (http ://ed ucati on.Bala burnett [employer]. com/f aq/FA Q164) Not Available [facility] [address] [place], [address], 10/14/2022 04:16:36 10/13/20 22 10/14/2022 LIPID PANEL , [place] chol/HDLC ratio 3.3 (calc ) <5.0 normal Not Available [facility] [address] [place] [address], [address], 10/14/2022 04:16:36 10/13/20 22 10/14/2022 LIPID PANEL , [place] non HDL cholesterol 137 mg/dL _(jose c) <130 high For patie nts with diabe keely plus 1 major ASCVD risk facto r, treat ing to a non-H DL-C goal of <100 mg/dL (LDL- C of <70 mg/dL ) is consi dered a thera peuti c optio n. Not Available [facility] [address] [address], [place], [address], 10/14/2022 04:16:36 12/09/1912/09/2022 COLOG UARD cologuard result [...] of ,00 0 [facility]ual [facility] risk for color ectal cance r [...] asymp tomat ic indiv idual s at [facility] risk for color ectal cance r. [...] 112:1 016-1 030. TEST DESCR IPTIO N: [place] site algor ithmi c eduin sis of [...] years or older , who are at [facility] for color ectal cance r (CRC) . Colog uard has been appro niecy for use by the [place] FDA. The perfo rmanc e of Colog uard was estab lishe d in a cross secti onal study of [facility] adult s aged 50-84 . Colog [...] [31%] ; or no color ectal neopl raafel [45%] . These estim ates are deriv ed from a prosp ectiv e cross -sect ional scree domingo study of ,00 0 [facility] for [facility] ectal [...] at www.c maryluu claire.c om. Not Available [facility] (Cologuard Orders Only) [address], [place], [address], 12/14/2022 17:27:21 12/24/19 23 12/24/2022 hemog lobin A1C, finge rstic k HgbA1C 5.8 Not Available [facility] [address] , [address], [place], [address], 12/23/2022 16:22:38 05/17/20 23 05/17/2023 hemog lobin A1C, finge rstic k HgbA1C 6 Not Available [facility] [address] [place], [place], [address], 05/14/2023 09:28:26 04/07/2004/07/2023 MAMMO , scree domingo, bilat eral No observ ation record ed. [address], [place], [address], 04/08/2023 09:11:08 05/03/2004/07/2023 MAMMO , scree domingo, bilat eral No observ ation record ed. [address], [place], [address], 05/03/2023 14:34:41 Result Notes None recorded. Problems Name Problem SNOMED Code Status Onset Date Resolution Date Notes Provider Name and Address Organization Details Recorded Time Increased blood pressure 11950868 Active Not Available [facility] 3 07:33:06 Edema 606992045 Active Not Available [facility] 3 07:33:07 Hypertensi ve disorder 18606785 Active Not Available [facility] 3 07:33:07 Onychomyco sis 218437370 Active Not Available [facility] 3 07:33:07 Bunion 257081911 Active Not Available [facility] 3 07:33:07 Fibroma 198793090 Active Not Available [facility] 3 07:33:07 Foot pain 79631665 Active Not Available [facility] 3 07:33:07 Essential hypertensi on 81061834 Active Not Available [facility] 3 07:33:07 Capsulitis 4286236 Active Not Available [facility] 3 07:33:07 Prediabete s 323815625 Active 2022 Antwon Munguia MD [address], [place], [address] , [facility] [employer] 3 09:28:23 Upper respirator y infection 21884518 Active 2022 Antwon Munguia MD [address] [facility], [facility] [address], [place], [address] , [facility] 3 13:47:44 Blephariti s of right eyelid 3935971217314 03 Active 2022 Antwon Munguia MD [address] [facility], [facility] [address], [place], [address] , [employer] 3 13:04:29 Chalazion of upper eyelid 579699422 Active 2022 Antwon Munguia MD [address] [facility], [facility] [address], [place], [address] , [employer] 3 19:49:12 Hyperlipid emia 18488128 Active 2022 DELMAR Ledezma [address] [facility], [place] [address], [place], [address] , [employer] 3 10:39:10 COVID-19 001737854 Active 2023 Priya Vigil RN [facility], [facility] 4 12:06:28 Problem Notes None recorded. Procedures Surgical History Date Name Laterality Status Provider Name and Address Organization Details Recorded Time 2 mammography completed Not Available [facility] 01/21/20 23 07:27:23 9 Colonoscopy completed Not Available [facility] 01/21/20 23 07:27:23 4 hysterectomy completed Not Available [facility] 023 07:27:23 Imaging Results None recorded. [...] % 98 % 74 /min 97.8 [degF] 96697.8 2 g 122 mm[Hg] 80 mm[Hg] Not Available [facility] 3 07:28:59 Date Recorded Body height Body mass index (BMI) Body weight Body temperature Heart rate Oxygen saturation Oxygen saturation in Arterial blood by Pulse oximetry Systolic blood pressure Diastolic blood pressure Provider Name and Address Organization Details Last Updated DateTime 3 170.18 cm 19.3 kg/m2 30767.8 6 g 97.5 [degF] 60 /min 98 % 98 % 100 mm[Hg] 68 mm[Hg] EMILY Garber [facility] 3 09:21:12 Date Recorded Body height Body mass index (BMI) Body weight Body temperature Heart rate Oxygen saturation Oxygen saturation in Arterial blood by Pulse oximetry Systolic blood pressure Diastolic blood pressure Provider Name and Address Organization Details Last Updated DateTime 3 170.18 cm 18.3 kg/m2 18004.3 1 g 97.4 [degF] 66 /min 98 % 98 % 116 mm[Hg] 68 mm[Hg] Chelsy lanier CMA [facility] [employer] [place] [facility] 3 12:51:01 Date Recorded Body mass index (BMI) Body height Oxygen saturation Oxygen saturation in Arterial blood by Pulse oximetry Heart rate Body temperature Body weight Systolic blood pressure Diastolic blood pressure Provider Name and Address Organization Details Last Updated DateTime 2 20.5 kg/m2 170.18 cm 98 % 98 % 67 /min 97.5 [degF] 74117.6 g 122 mm[Hg] 80 mm[Hg] Not Available [facility] 3 07:28:59 Date Recorded Body height Body mass index (BMI) Body weight Body temperature Heart rate Respiratory rate Oxygen saturation Oxygen saturation in Arterial blood by Pulse oximetry Systolic blood pressure Diastolic blood pressure Provider Name and Address Organization Details Last Updated DateTime 3 170.18 cm 18.3 kg/m2 16102.3 1 g 97.8 [degF] 66 /min 16 /min 98 % 98 % 126 mm[Hg] 78 mm[Hg] Ruthie Wood RN [facility] [employer] [facility] 3 10:29:54 Social History Question Answer Notes LastModified by [employer] Details LastModified Time Tobacco Smoking Status Never Smoker Alida santana [facility] [employer] [facility] 11/17/2023 10:25:48 What Type Of Diet Are You Following? REGULAR [id number] Information not available 01/20/2023 Sex: Unknown Functional Status Question Answer Note LastModified by [employer] Details LastModified Time What is your level of alcohol consumption? None [id number] Information not available 01/20/2023 Mental Status None recorded. Family History Relationship Description Onset Age of this Age Resolved Age Notes LastModified by Organization Details LastModified Time Father Heart disease [id number] Not available 01/20/2023 07:27:24 Mother Cardiac pacemaker in situ [email or web address] Not available 11/17 10:25:48 Medical History No medical history recorded. Gynecological HistoryNo gynecological history recorded. Obstetrics History GPAL:G 0 P 0 0 0 0 Immunizations Vaccine Type Date Status Note Provider Nam e and Address Organization Details Recorded Time Influenza, split virus, quadrivalent, PF 09/30/2022 completed Not Available [facility] 3 07:40:59 Influenza, split virus, quadrivalent, PF 09/24/2021 completed Not Available [facility] 3 07:40:59 Influenza, split virus, quadrivalent, PF 09/19/2020 completed Not Available [facility] 3 07:40:59 Influenza, split virus, quadrivalent, PF 09/19/2019 completed Not Available [facility] 3 07:40:59 Tdap 09/19/2019 completed Not Available [facility] 01/20/2023 07:40:59 Influenza, split virus, quadrivalent, PF 09/16/2018 completed Not Available [facility] 3 07:41:00 Past Encounters Encounter ID Performer Location Encounter Start Date Encounter Closed Date Diagnosis/Indication Diagnosis SNOMED-CT Code Diagnosis ICD10 Code Diagnosis Note [id number] Antwon Munguia MD [facility] [address] [place] [address] 09/23/2021 00:00:00 09/23/2021 21:56:44 [id number] Antwon Munguia MD [facility] [place] [address] [place] [address] 12/01/2021 00:00:00 12/01/2021 21:58:59 [id number] Antwon Munguia MD [facility] [place] [address] [place] [address] 09/30/2022 00:00:00 09/30/2022 21:21:10 [id number] Antwon Munguia MD [facility] [place] [address] [place] [address] 12/23/2022 00:00:00 12/23/2022 21:47:12 [id number] Antwon Munguia MD [facility] [place] [address] [place] [address] 05/14/2023 09:07:10 05/14/2023 09:32:22 Prediabetes 740980495 R73.03 A1C is 6%. continue metformin. Watch carbs. Upper resp iratory infection 24571384 J06.9 SxRx and simply saline nasal spray and hot packs to face [id number] Antwon Munguia MD [facility] [place] [place] [address] [facility] [place] [address] 09/15/2023 12:25:04 09/15/2023 13:10:18 Blepharitis of right eyelid 5354747838 [address] H01.003 Warm compresses Zyrtec to use. Let me know how she is doing in 2 days if no better may need oral antibiotic Chalazion of upper eyelid 084648877 H00.19 May need oral antibiotic s if no better. [id number] Antwon Munguia MD [facility] [address] [facility] [place] [address] 11/17/2023 10:24:29 11/17/2023 10:45:32 [facility] [id number] E78.5 Health Concerns Section Related Observation LastModified by Organization Detai ls LastModified Time None Recorded Concern Status LastModified by Organization Details LastModified Time None Recorded Advance Directives Directive None Recorded Payers Encounter Date Sequence Insurance Name Policy Number Policy De Paz Covered Member ID De Paz Member ID Guarantor Name 05/14/2023 1 [facility] [id number] Miladys Prado [id number] Miladys Prado 09/15/2023 1 [facility] [id number] Miladys Prado [id number] Miladys Prado 11/17/2023 1 [facility] (MEDICARE REPLACEMENT/A DVANTAGE - HMO) [id number] Miladys Prado [id number] Miladys Prado Notes Date Note Type Note Provider Name and Address Organization Details Recorded Time 05/14/2023 text/html Here today for A 1C check. No problems with metformin.Has noticed some sinus issues. Has a sinus headache and has drainage in back of throat. She is feeling fine otherwise no complaints. Antwon Munguia MD [address] [place] [address], [facility] [address], [place], [address], [facility] [employer] [facility] 05/14/2023 13:48:46 09/15/2023 text/html Has swelling of right upper eyelid It started 3 days ago. It is tender and taking ibuprofen and warm compresses. She has a little PND. No colored mucus. Her eye was swollen shut this am. No conjunctival erythema or drainage. Antwon Munguia MD [address], [facility] [address], [place], [address], [facility] [employer] [facility] 09/15/2023 19:50:41 11/17/2023 text/html still has a nodu le right upper lid , non-painful DELMAR Ledezma [address], [facility] [address], [place], [address], [facility] [employer] [facility] 11/17/2023 13:13:41 OBGyn Episode No OBEpisode recorded.
[2025-05-03] MEDS: LACTATED RINGERS 1,000 ML 30 ML IV CONT ×2 (06:45→09:04)
[2025-05-03] MEDS: ACETAMINOPHEN 500 MG TABLET 1000 MG PO (06:50)
[2025-05-03] MEDS: KETOROLAC 15 MG/ML VIAL (*BKC) IV PUSH (06:50)
--- NOTE | 2025-05-03 07:05 | WPDHPUPDATE1 ---
History and Physical Update Update Date/Time: 05/03/25 07:05 History and Physical has been reviewed, including an updated exam of the patient. There are NO changes in the patient's condition. Risks, benefits, and alternatives have been discussed and questions answered. Patient agrees to proceed with procedure.
--- NOTE | 2025-05-03 07:07 | WPDANESEPPF ---
Anes - Initial Pre Proc Eval Procedure: Operation Date: 05/03/25 07:30 Proposed Procedures p Left Hallux Valgus Correction, First Metatarsal Osteotomy, Possible Phalangeal Osteotomy - Robin Rene MD Date/Time: 05/03/25 07:07 Surgeon: Robin Rene MD Pre Op Diagnosis: left hallux valgus Patient Data Age: 64 Gender: F Height: 1.65 m Weight: 56 kg Allergies Allergy/AdvReac Type Severity Reaction Status Date / Time No Known Allergies Allergy Mild Verified 05/03/25 07:06 Home Medications ?Medication ?Instructions ?Recorded ?Confirmed ?Type estradiol 0.01% (0.1 mg/gram) 0.5 appful vaginal 3XW 01/28/24 04/17/25 History vaginal cream ezetimibe 10 mg tablet 10 mg PO DAILY #90 tabs 06/09/24 04/17/25 Rx hydrochlorothiazide 25 mg tablet See Rx Instructions .Route 01/24/25 04/17/25 Rx .COMPLEX #90 tabs biotin 10,000 mcg chewable tablet 10,000 mcg PO DAILY 04/17/25 05/03/25 History (Hair, Skin and Nails (biotin)) cholecalciferol (vitamin D3) 50 2,000 unit PO DAILY 04/17/25 05/03/25 History mcg (2,000 unit) capsule ibuprofen 200 mg capsule 200 mg PO Q6H PRN pain 04/17/25 05/03/25 History Patient hx anesthesia problems: none Family hx anesthesia problems: none Results Review: All pre-operative results and documents have been reviewed as part of the pre-operative evaluation. [facility] Past Medical History Medical History Left foot pain Acquired hallux valgus of left foot Prediabetes Hypertension Surgical History Surgical History History of abdominal hysterectomy (~2003) Family History Family History Father Hypertension Heart disease Testicular cancer Malignant neoplasm of prostate Mother Anxiety and depression Social History Social History Social History: caffeine use Smoking status: Never smoker Additional smoking assessment comments: does not smoke Alcohol use details: occasional Substance use type: does not use Do You Feel Safe in your Home?: Yes Lack of Transportation: No Lack of Food: Never True Current Housing: I Have Housing Concerned About Future Housing: No Difficulty Paying Gas/Electric Bills: No Difficulty Paying for Meds: No Currently Unemployed: No Education: High School Diploma/GED Difficulty w/ Childcare or Family Care: No Living arrangements: with family Additional living arrangements comments: HUSB Spiritual care concerns: No Anes - Eval Final PreProcedure Day of Procedure 05/03/25 07:07 Patient weight: normal Heart: regular rate and rhythm Lungs: clear to auscultation Airway: Mallampati scale class II Neurological: alert and oriented Last oral intake: >/= 8 hours ASA classification: II Emergent: no Anesthetic plan: proceed Anesthesia type and monitoring: general LMA and standard monitoring Results Review: All pre-operative results and documents have been reviewed as part of the pre-operative evaluation. Informed Consent: The patient's anesthetic plan and its attendant risks and benefits were discussed with the patient/family/POA. Questions were solicited and answers provided to the satisfaction of the patient/family/POA.
[2025-05-03] MEDS: ceFAZolin 2 GM/D5W 50 ML 2 GM/50 ML BAG IVPB (07:27)
[2025-05-03] MEDS: BUPivacaine HCL 0.5% 10 ML AMP 20 ML INFILTRATE (07:58)
--- NOTE | 2025-05-03 09:20 | P.OP_ITS ---
Procedure Note - Detailed Date of Procedure 05/03/25 Pre-op Diagnosis left hallux valgus Post-op Diagnosis Same Procedure Performed Left hallux valgus correction with double osteotomy Surgeon Robin Rene MD Mechanical Commissioning Engineer 1st physician assistant psychiatry Anesthesia General Indications 64-year-old woman with increasing deformity left hallux valgus. Daily pain and difficulty with activity. Failed non operative treatment. Presents for operative treatment. Description of Procedure After informed consent was given, the operative extremity was marked in the preoperative holding area. The patient received intravenous antibiotics. The patient was brought to the operating room where they underwent a general anesthetic by the anesthesia team. The patient was positioned supine on the operating room table. A time-out was performed confirming the patient, site of the surgery, and the plan for surgery. The left lower extremity was then prepped and draped in the usual sterile surgical fashion using ChloraPrep skin solution. Foot and ankle were exsanguinated and a calf tourniquet was inflated to 225 mmHg pressure. A longitudinal incision was then made along the medial border of the 1st ray centered over the medial eminence with a #15 blade knife. The previous incision was utilized. Hemostasis was controlled with electric cautery. The dorsal and plantar sensory nerves were identified and retracted bluntly. A medial capsulotomy was then performed. This was reflected off the medial eminence. The joint was inspected for evaluation of degenerative changes. A lateral release was then performed through the joint with a #15 blade knife. The medial eminence was then resected with a sagittal saw in line with the medial border of the foot. Correction of the deformity was performed with a chevron-shaped osteotomy performed with sagittal saw from medial to lateral through the distal portion of the 1st metatarsal. The lateral portion of the bone cut was completed with an osteotome to protect the soft tissue. The capital fragment was then translated laterally and impacted on to the 1st metatarsal shaft. Lateral translation and impaction corrected both hallux valgus deformity and correction of the distal metatarsal articular angle. Temporary fixation was performed and alignment was verified with image intensification. Hallux valgus angle correction, intermetatarsal angle correction and distal metatarsal articular angle were verified. Fixation was achieved with 2.0 millimeter bioabsorbable pins. Two pins were utilized. Image intensification confirmed final alignment. Rotation was verified visually. The wound was then thoroughly irrigated with antibiotic solution. The capsule was repaired through a drill hole in the distal 1st metatarsal with 0 Vicryl interrupted suture. The dorsal limb of the capsule was repaired with 00 Vicryl interrupted suture. Subcutaneous tissue was repaired with 000 Monocryl interrupted suture and the skin approximated with 0000 nylon running suture. Local anesthetic with 0.5% Marcaine plain was injected in the soft tissue. Clinically and fluoroscopically there was still hallux valgus interphalangeus present. Proximal phalanx osteotomy was indicated. Medial incision made along the proximal phalanx with 15 blade knife. Hemostasis controlled electrocautery. Dissection down to the medial aspect of the proximal phalanx. Retractors placed. Sagittal saw used to make a medial closing wedge osteotomy transversely across the proximal phalanx. Image intensification confirmed placement of the osteotomy. Fixation was achieved with the Arthrex 10 millimeter x 9 millimeter staple. Good stability and fixation were noted. Image intensification confirmed final alignment of the osteotomy and placement of the hardware. Overall alignment of the 1st ray was verified. Wound was thoroughly irrigated with antibiotic solution. Soft tissue closed with 000 Monocryl interrupted suture. Skin approximately 4 O nylon running suture. Sterile dressing was then applied. Tourniquet was released and good capillary refill in the hallux was verified. The patient was then awoken from anesthesia, extubated in the operating room, and taken to the recovery room in stable condition. All sponge, needle, and instrument counts were correct at the end of the case. Implants 2.0 mm trim it pin x 2, 10 x 9 mm staple-Arthrex Estimated Blood Loss 5 Tourniquet Time Total Tourniquet Time: 75 Drains No Packing No Pathology None sent Complications None Condition Stable Disposition PACU [facility] Billing Surgery - Charge Forward: Surgery Billing ([id number])
== END 2025-05-03 10:37 | disposition home or self-care (01) ==
PROVIDERS: PCP Internal Medicine; Visit Provider Orthopaedic Surgery
PROC: (CPT 28299; principal; 2025-05-03 07:30)
DX: M20.12 Hallux valgus (acquired), left foot (principal); R73.03 Prediabetes; I10 Essential (primary) hypertension; Z79.1 Long term (current) use of non-steroidal anti-inflammatories (NSAID); Z98.890 Other specified postprocedural states; Z80.42 Family history of malignant neoplasm of prostate; Z80.43 Family history of malignant neoplasm of testis; Z82.49 Family history of ischemic heart disease and other diseases of the circulatory system
CPT/HCPCS: 28299; 99199; A9270; C1713; J0690; J1100; J1885; J2003; J2250; J2405; J2704; J3010; J7120

== ENCOUNTER 2025-06-18 15:15 | Outpatient (CLI) | payer MEDICARE, SELFPAY ==
--- NOTE | ~2025-06-18 | MM_ITS ---
EXAMINATION: MM screening ayo BI w kassandra HISTORY: Screening TECHNIQUE: Craniocaudal and mediolateral oblique 3-D tomosynthesis images were obtained and synthetic 2-D images were generated. CAD analysis was submitted and interpreted. COMPARISON: Comparison to multiple prior studies sequentially, with oldest reviewed study dated 01/30/2021. BREAST PARENCHYMAL COMPOSITION: Dense: The breasts are heterogeneously dense, which may obscure small masses FINDINGS: There is no evidence of suspicious mass, calcification, or architectural distortion to sugg est malignancy in either breast. There has been no suspicious interval change. IMPRESSION: 1. No mammographic evidence of malignancy. 2. Recommend routine screening mammography in one year. BI-RADS Category 1: Negative Reviewed, dictated and finalized at location B.
--- OUTSIDE RECORDS SUMMARY | 2025-06-18 15:19 | XMS_ITS | Clinical Summary ---
Author Organization [facility] Address [address] [place] [address] Care Team Providers Care Painting Machine Operator Name Role Phone None, Provider MD Primary Care Provider Unavaila ble Encounters Date Type Department Care Team Description 05/21/2025 10:29 AM CDT - 05/21/2025 11:59 PM CDT Hospital Encounter [place] [address] [place], [place] [id number] Aletha Weaver NP Discharge Disposition: Home or Self Care (Routine Discharge) 05/21/2025 Travel from Last 3 Months Social History Tobacco Use Types Packs/Day Years Used Date Smoking Tobacco: Never Assessed Comments Unknown Sex and Gender Information Value Date Recorded Sex Assigned at Female 05/21/2025 10:27 AM CDT Legal Sex Female 8:13 AM CDT Gender Identity Not on file Sexual Orientation Not on file Plan of Treatment Health Maintenance Due Date Last Done Comments Colorectal Cancer Screening Colonoscopy (10 Years) 1958 Hepatitis C 1976 Mammogram Screening 1998 Pneumococcal Vaccine: 50+ Years (1 of 1 - PCV) 2008 Zoster Vaccines (1 of 2) 2008 Annual Medicare Wellness Visit 2023 Dexa Scan (General) 2023 COVID-19 Vaccine ( - 2023-2 5 season) 2024 05/12/2022, 07/01/2021, 06/10/2021 DTaP, Tdap and Td Vaccines ( 2 - Td or Tdap) 09/19/2029 09/19/2019 RSV Immunization or 60+ Years (1 - 1-dose 75+ series) 2033 Meningococcal B Vaccine Aged Out No l onger eligible based on patient's age to complete this topic Meningococcal Vaccine Aged Out No francois sharon eligible based on patient's age to complete this topic RSV Immunizations Under 20 Months Aged Out No longer eligible b ased on patient's age to complete this topic Procedures Procedure Name Priority Date/Time Associated Diagnosis Comments CT HEART SCREEN CALCIUM SCORE PROMO Routine 05/21/2025 10:43 AM CDT Family history of ischemic heart disease and other diseases of the circulatory system from Last 3 Months Results * CT HEART SCREEN CALCIUM SCORE PROMO (05/21/2025 10:43 AM CDT) Anatomical Region Laterality Modality Chest Computed Tomogra phy 05/21/2025 1:52 PM CDT Impressions 05/21/2025 1:52 PM CDT =====IMPRESSION:===== Total Score: 0 No plaque, very low risk, very unlikely for probability of significant CAD Ordered By: ALETHA WEAVER Interpreted By: Leighton Laughlin MD, 05/21/2025 1:52 PM Narrative 05/21/2025 1:52 PM CDT [address] [id number] EXAMINATION: Multislice Helical CT Coronary Calcium Scoring REASON FOR EXAM: Screening for heart disease COMPARISON: None TECHNIQUE: Multislice helical CT images of the proximal coronary arteries with a computer generated calcification score. A dose lowering technique was used for this procedure, which may include, but is not limited to, dose reduction technique, automated exposure control, iterative reconstruction, ALARA (As Low As Reasonably Achievable), or Image Gently techniques. Results: Left main: 0 LAD: 0 Circumflex: 0 Right coronary: 0 Total Score: 0 Comments: There is no mediastinal adenopathy, and there are no pulmonary nodules in the visualized portions of the chest. Calcium score guidelines: Total Score* Calcium Plaque [place] *Risk *Probability of significant CAD 0 No Plaque Very Low Very unlikely 1-10 Minimal Plaque Low Unlikely 11-100 Mild Plaque Moderate Low likelihood of significant stenosis <50% 101-400 Moderate Plaque Moderately High Moderate likelihood of significant stenosis (>50%) Over 400 Extensive Plaque High High likelihood of significant stenosis (>50%) The amount of coronary artery calcification correlates with the severity of coronary atherosclerosis and the probability of future significant event. Calcification is not site specific for stenosis and does not identify non-calcified atherosclerotic plaque, but rather indicates the extent of atherosclerosis in the coronary arteries overall. The score may be used as an indicator for risk factor modification or additional cardiac testing. Significant change in calcium score over time may be indicative of subsequent disease development or useful as a benchmark to assess preventative programs. Procedure Note Leighton Laughlin MD - 05/21/2025 [place] [id number] EXAMINATION: Multislice Helical CT Coronary Calcium Scoring REASON FOR EXAM: Screening for heart disease COMPARISON: None TECHNIQUE: Multislice helical CT images of the proximal coronary arterieswith a computer generated calcification score. A dose lowering techniquewas used for this procedure, which may include, but is not limited to,dose reduction technique, automated exposure control, iterativereconstruction, ALARA (As Low As Reasonably Achievable), or Image Gentlytechniques. Results: Left main: 0 LAD: 0 Circumflex: 0 Right coronary: 0 Total Score: 0 Comments: There is no mediastinal adenopathy, and there are no pulmonarynodules in the visualized portions of the chest. Calcium score guidelines: Total Score* Calcium Plaque [place] *Risk *Probability ofsignificant CAD 0 No Plaque Very LowVery unlikely 1-10 Minimal Plaque LowUnlikely 11-100 Mild Plaque ModerateLow likelihood of significant stenosis <50% 101-400 Moderate Plaque Moderately HighModerate likelihood of significant stenosis (>50%) Over 400 Extensive Plaque HighHigh likelihood of significant stenosis (>50%) The amount of coronary artery calcification correlates with the severityof coronary atherosclerosis and the probability of future significantevent. Calcification is not site specific for stenosis and does notidentify non-calcified atherosclerotic plaque, but rather indicates theextent of atherosclerosis in the coronary arteries overall. The score may be used as an indicator for risk factor modification oradditional cardiac testing. Significant change in calcium score over timemay be indicative of subsequent disease development or useful as abenchmark to assess preventative programs. =====IMPRESSION:===== Total Score: 0 No plaque, very low risk, very unlikely for probability ofsignificant CAD Ordered By: ALETHA WEAVER Interpreted By: Leighton Laughlin MD, 05/21/2025 1:52 PM us Aletha Weaver SENIOR BUSINESS MANAGER CT Final Result from Last 3 Months Insurance [facility] MEDIC[facility] [employer] Care Teams Painting Machine Operator Relationship Specialty Start Date End Date None, Provider, PCP - General UNKNOWN PHYSICIAN SPECIALTY 05/11/25
--- OUTSIDE RECORDS SUMMARY | 2025-06-18 15:19 | XMS_ITS | Referral Summary ---
Author Organization 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
--- OUTSIDE RECORDS SUMMARY | 2025-06-18 15:19 | XMS_ITS | Clinical Summary ---
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
--- OUTSIDE RECORDS SUMMARY | 2025-06-18 15:19 | XMS_ITS | Data Portability ---
Author Organization [facility], Main Office Address [address] [place] [address] Assessment No assessment recorded. Plan of Treatment Reminders Order Date Submit Date Provider Last Modified By Organization Details Last Modified Time Details Appointments None recorded. Lab hemoglobin A1C, fingerstick 2022 023 [facility] [address], [place], [address], 3 09:04:30 Referral None recorded. Procedures None recorded. Surgeries None recorded. Imaging None recorded. Medication Orders ezetimibe 10 mg tablet 2022 023 [facility] [address], [address] [place] [address], [address], 3 10:41:43 erythromyci n 5 mg/gram (0.5 %) eye ointment 2022 023 [facility]61, [address] [place], [address], 3 13:05:37 Patient TargetsNo targets recorded. Patient [...] with a follo w-up test. Not Available [place] [address] [place], [address], 10/14/2022 04:16:36 10/13/20 22 10/14/2022 COMPR EHENS CECILE METAB OLIC PANEL urea nitrogen (BUN) 13 mg/dL 7-25 normal Not Available [address] [address] [place], [address], 10/14/2022 04:16:36 10/13/20 22 10/14/2022 COMPR EHENS CECILE METAB OLIC PANEL creatinine 0.59 mg/dL 0.50-1 .05 normal Not Available [address] [address] [place], [address], 10/14/2022 04:16:36 10/13/20 22 10/14/2022 COMPR EHENS CECILE METAB OLIC PANEL eGFR 101 mL/mi n/1.7 3m2 > or = 60 normal The eGFR is based on the CKD-E PI 2020 luisa javier. To calcu late the new eGFR from a previ ous Creat inine or Cysta tin C resul t, go to https ://perez garcia.rory blackwell.o rony/sara pham s/ kdoqi /gfr% 5Fcal culat or Not Available [place] [address] [address] [place], [address], 10/14/2022 04:16:36 10/13/20 22 10/14/2022 COMPR EHENS CECILE METAB OLIC PANEL BUN/creatini ne ratio not applic able (calc ) 6-22 Not Available [address] [address] [place], [address], 10/14/2022 04:16:36 10/13/20 22 10/14/2022 COMPR EHENS CECILE METAB OLIC PANEL sodium 143 mmol/ L 135-14 6 normal Not Available [address], [place], [address], 10/14/2022 04:16:36 10/13/20 22 10/14/2022 COMPR EHENS CECILE METAB OLIC PANEL potassium 3.8 mmol/ L 3.5-5. 3 normal Not Available [address], [address], 10/14/2022 04:16:36 10/13/20 22 10/14/2022 COMPR EHENS CECILE METAB OLIC PANEL chloride 103 mmol/ L 98-110 normal Not Available [address], [address], 10/14/2022 04:16:36 10/13/20 22 10/14/2022 COMPR EHENS CECILE METAB OLIC PANEL carbon dioxide 28 mmol/ L 20-32 normal Not Available [address], [address], 10/14/2022 04:16:36 10/13/20 22 10/14/2022 COMPR EHENS CECILE METAB OLIC PANEL calcium 10.0 mg/dL 8.6-10 .4 normal Not Available [address], [address], 10/14/2022 04:16:36 10/13/20 22 10/14/2022 COMPR EHENS CECILE METAB OLIC PANEL protein, total 7.0 g/dL 6.1-8. 1 normal Not Available [address] [place], [address], 10/14/2022 04:16:36 10/13/20 22 10/14/2022 COMPR EHENS CECILE METAB OLIC PANEL albumin 4.4 g/dL 3.6-5. 1 normal Not Available [address] [place], [address], 10/14/2022 04:16:36 10/13/20 22 10/14/2022 COMPR EHENS CECILE METAB OLIC PANEL alkaline phosphatase 68 U/L 37-153 normal Not Available [address], [address], 10/14/2022 04:16:36 10/13/20 22 10/14/2022 COMPR EHENS CECILE METAB OLIC PANEL globulin 2.6 g/dL_ (calc ) 1.9-3. 7 normal Not Available [address], [address], 10/14/2022 04:16:36 10/13/20 22 10/14/2022 COMPR EHENS CECILE METAB OLIC PANEL albumin/glob ulin ratio 1.7 (calc ) 1.0-2. 5 normal Not Available [address], [address], 10/14/2022 04:16:36 10/13/20 22 10/14/2022 COMPR EHENS CECILE METAB OLIC PANEL bilirubin, total 0.4 mg/dL 0.2-1. 2 normal Not Available [address], [address], 10/14/2022 04:16:36 10/13/20 22 10/14/2022 COMPR EHENS CECILE METAB OLIC PANEL AST 18 U/L 10-35 normal Not Available [address], [address], 10/14/2022 04:16:36 10/13/20 22 10/14/2022 COMPR EHENS CECILE METAB OLIC PANEL ALT 11 U/L 6-29 normal Not Available [address], [address], 10/14/2022 04:16:36 10/13/20 22 10/14/2022 LIPID PANEL , [place] cholesterol, total 197 mg/dL <200 normal Not Available [address], [address], 10/14/2022 04:16:36 10/13/20 22 10/14/2022 LIPID PANEL , [place] HDL cholesterol 60 mg/dL > or = [address] [facility] [address] [place], [address], 10/14/2022 04:16:36 10/13/20 22 10/14/2022 LIPID PANEL , [place] triglyceride s 99 mg/dL <150 normal Not Available [facility] [[email or web address] Diagnostics [place] [address] [address] [facility] [place], [address], 10/14/2022 04:16:36 10/13/20 22 10/14/2022 LIPID PANEL , [place] LDL-choleste rol 116 mg/dL _(jose c) high Refer ence range : <100 Marcia able range <100 mg/dL for prima ry preve ntion ; <70 mg/dL for patie nts with CHD or diabe tic patie nts with > or = 2 CHD risk facto rs. LDL-C is now calcu lated using the [facility] maricelu tiff n, which is a valid ated novel obinna john than the Fried raymon equat ion in the estim ation of LDL-C . Cass dela cruz SS et al. MEAGHAN. 2013; 310(1 9): 2061- 2068 (http ://ed ucati on.Qu Luisa burnett [employer]s. com/f aq/FA Q164) Not Available [facility] [address] [place], [address], 10/14/2022 04:16:36 10/13/20 22 10/14/2022 LIPID PANEL , [place] chol/HDLC ratio 3.3 (calc ) <5.[address] [facility] [address] [place], [address], 10/14/2022 04:16:36 10/13/20 22 10/14/2022 LIPID PANEL , ST[place] non HDL cholesterol 137 mg/dL _(jose c) <130 high For patie nts with diabe keely plus 1 major ASCVD risk facto r, treat ing to a non-H DL-C goal of <100 mg/dL (LDL- C of <70 mg/dL ) is conskai lopez optio n. Not Available [employer] [facility] [address] [address], [place], [address], 10/14/2022 04:16:36 12/09/1912/09/2022 COLOG UARD cologuard result [...] ectiv e cross -sect ional study of 10,00 0 indiv idual s at [facility] risk for color ectal cance r who were scree mervat with both Colog uard and colon oscop y. (Harpreet Santiago et al, N Engl J Med 2014; 370(1 4):12 86-12 97) The jim l value (refe rence range ) for this assay is negat cecile. COLOG UARD RE-SC SHAMAR NG RECOM MENDA TION: Perio dic color ectal cance r scree domingo is an impor tant part of preve ntive healt hcare for asymp tomat ic indiv idual s at [facility] risk for color ectal cance r. Follo wing a negat cecile Colog uard resul t, the Ameri can Cance r Socie ty and U.S. Multi -Soci ety Task Force scree domingo guide lines recom mend a Colog uard re-sc shamar james inter jeferson of 3 years . Refer ences : [place] can Cance r Socie ty Guide line for Color ectal Cance r Scree domingo: https ://perez w.can cer.o rg/ca ncer/ colon -rect al-ca ncer/ detec tion- diagn osis- stagi ng/ac s-rec ommen datio ns.ht ml.; Delroy MCKEON, Mohan murrell CR, Vijaya bullard JK, Color ectal Cance r Scree domingo: Recom menda tions for Physi cians and Patie nts from the U.S. Multi -Soci ety Task Force on Color ectal Cance r Scree domingo , Terence fournier rolog y 2017; 112:1 016-1 030. TEST DESCR IPTIO N: [place] site algor ithmi c eduin sis of stool DNA-b ioal son with hemog lobin immun oassa y. Quant itati ve value s of indiv idual bioma rkers are not repor table and are not assoc iated with indiv idual bioma rker resul t refer ence range s. Colog uard is inten ded for color ectal cance r scree domingo of adult s of eithe r sex, 45 years or older , who are at [facility] for color ectal cance r (CRC) . Colog uard has been appro niecy for use by the U.S. FDA. The perfo rmanc e of Colog uard was estab lishe d in a cross secti onal study of [facility] adult s aged 50-84 . Colog uard perfo rmanc e in patie nts ages 45 to 49 years was estim ated by sub-g savp eduin sis of near- age group s. Colon oscop ies perfo rmed for a posit cecile resul t may find as the most clini taniya signi ficfish t lesio n: color ectal cance r [...] of ,00 0 indiv idual s at [place] [place] [facility] risk for color ectal cance r who were scree mervat with both Colog uard and colon oscop y. (Harpreet Escalona. et al, N Engl J Med 2014; [...] at www.c maryluu claire.c om. Not Available [facility] (Cologuard Orders Only) [address], [place], [address], 12/14/2022 17:27:21 12/24/19 23 12/24/2022 hemog lobin A1C, finge rstic k HgbA1C 5.8 Not Available [facility] [address] , [address], [place], [address], 12/23/2022 16:22:38 0605/17/2023 hemog lobin A1C, adwoae rstic k HgbA1C 6 Not Available [facility] [place] [facility] [address] [place], [place], [address], 05/14/2023 09:28:26 04/07/20 23 04/07/2023 MAMMO , scree domingo, bilat eral No observ ation record ed. [address], [place], [address], 04/08/2023 09:11:08 05/03/2004/07/2023 MAMMO , scree domingo, bilat eral No observ ation record ed. [address], [place], [address], 05/03/2023 14:34:41 Result Notes None recorded. Problems Name Problem SNOMED Code Status Onset Date Resolution Date Notes Provider Name and Address Organization Details Recorded Time Increased blood pressure 27949170 Active Not Available [facility] 3 07:33:06 Edema 192929507 Active Not Available [facility] 3 07:33:07 Hypertensi ve disorder 63796928 Active Not Available [facility] 3 07:33:07 Onychomyco sis 786136015 Active Not Available [facility] 3 07:33:07 Bunion 694373532 Active Not Available [facility] 3 07:33:07 Fibroma 846137758 Active Not Available [facility] 3 07:33:07 Foot pain 86157505 Active Not Available [facility] 3 07:33:07 Essential hypertensi on 17375128 Active Not Available [facility] 3 07:33:07 Capsulitis 0514985 Active Not Available [facility] 3 07:33:07 Prediabete s 445681167 Active 2022 Antwon Munguia MD [facility] [address], [place], [address] , [facility] 3 09:28:23 Upper respirator y infection 94126865 Active 2022 Antwon Munguia MD [address] [facility], [facility] [address], [place], [address] , [facility] [employer] [facility] 3 13:47:44 Blephariti s of right eyelid 9083800879121 03 Active 2022 Antwon Munguia MD [address] [facility], [facility] [address], [place], [address] , [facility] [employer] [facility] [employer] [facility] 3 13:04:29 Chalazion of upper eyelid 530942929 Active 2022 Antwon Munguia MD [address] [facility], [facility] [address], [place], [address] , [facility] [employer] [facility] [employer] [facility] 3 19:49:12 Hyperlipid emia 58936144 Active 2022 DELMAR Ledezma [address] [facility], [facility] [address], [place], [address] , [facility] [employer] [facility] [employer] [facility] 3 10:39:10 COVID-19 553550687 Active 2023 Priya Vigil RN [facility], [facility] [employer] [facility] 4 12:06:28 Problem Notes None recorded. Procedures Surgical History Date Name Laterality Status Provider Name and Address Organization Details Recorded Time 2 mammography completed Not Available [facility] 01/21/20 23 07:27:23 9 Colonoscopy completed Not Available [facility] 01/21/20 23 07:27:23 4 hysterectomy completed Not Available [facility] 023 07:27:23 Imaging Results None recorded. Procedure [...] MOUTH EVERY 8 HOURS FOR 10 DAYS 12/27 /2023 completed Not Available Not Available Not Available [...] Heart rate Body temperature Body weight Systolic And Diastolic Provider Name and Address Organization Details Last Updated DateTime 3 20 kg/m2 170.18 cm 98 % 98 % 74 /min 97.8 [degF] 24374.8 2 g 122/80 mm[Hg] Not Available [facility] 3 07:28:59 Date Recorded Body height Body mass index (BMI) Body weight Body temperature Heart rate Oxygen saturation Oxygen saturation in Arterial blood by Pulse oximetry Systolic And Diastolic Provider Name and Address Organization Details Last Updated DateTime 3 170.18 cm 19.3 kg/m2 86314.8 6 g 97.5 [degF] 60 /min 98 % 98 % 100/68 mm[Hg] EMILY Garber [facility] 3 09:21:12 Date Recorded Body height Body mass index (BMI) Body weight Body temperature Heart rate Oxygen saturation Oxygen saturation in Arterial blood by Pulse oximetry Systolic And Diastolic Provider Name and Address Organization Details Last Updated DateTime 3 170.18 cm 18.3 kg/m2 99580.3 1 g 97.4 [degF] 66 /min 98 % 98 % 116/68 mm[Hg] Chelsy lanier CMA [facility] 3 12:51:01 Date Recorded Body mass index (BMI) Body height Oxygen saturation Oxygen saturation in Arterial blood by Pulse oximetry Heart rate Body temperature Body weight Systolic And Diastolic Provider Name and Address Organization Details Last Updated DateTime 2 20.5 kg/m2 170.18 cm 98 % 98 % 67 /min 97.5 [degF] 20223.6 g 122/80 mm[Hg] Not Available [facility] 3 07:28:59 Date Recorded Body height Body mass index (BMI) Body weight Body temperature Heart rate Respiratory rate Oxygen saturation Oxygen saturation in Arterial blood by Pulse oximetry Systolic And Diastolic Provider Name and Address Organization Details Last Updated DateTime 3 170.18 cm 18.3 kg/m2 29268.3 1 g 97.8 [degF] 66 /min 16 /min 98 % 98 % 126/78 mm[Hg] Ruthie Wood RN [facility] [employer] [facility] 3 10:29:54 Social History Question Answer Notes LastModified by [employer] Details LastModified Time Tobacco Smoking Status Never Smoker Alida santana [facility] [employer] [facility] 11/17/2023 10:25:48 What Type Of Diet Are You Following? REGULAR [id number] Information not available 01/20/2023 Sex: Unknown Functional Status Question Answer Note LastModified by [employer] Details LastModified Time What is your level of alcohol consumption? None [id number] Information not available 01/20/2023 Mental Status None recorded. Family History Relationship Description Onset Age of this Age Resolved Age Notes LastModified by Organization Details LastModified Time Father Heart disease [id number] Not available 01/20/2023 07:27:24 Mother Cardiac pacemaker in situ [id number] Not available 11/17 10:25:48 Medical History No medical history recorded. Gynecological HistoryNo gynecological history recorded. Obstetrics History GPAL:G 0 P 0 0 0 0 Immunizations Vaccine Type Date Status Note Provider Nam e and Address Organization Details Recorded Time Influenza, split virus, quadrivalent, PF 09/30/2022 completed Not Available [facility] 3 07:40:59 Influenza, split virus, quadrivalent, PF 09/24/2021 completed Not Available [facility] 3 07:40:59 Influenza, split virus, quadrivalent, PF 09/19/2020 completed Not Available [facility] 3 07:40:59 Influenza, split virus, quadrivalent, PF 09/19/2019 completed Not Available [facility] 3 07:40:59 Tdap 09/19/2019 completed Not Available [facility] 01/20/2023 07:40:59 Influenza, split virus, quadrivalent, PF 09/16/2018 completed Not Available [facility] 3 07:41:00 Past Encounters Encounter ID Performer Location Encounter Start Date Encounter Closed Date Diagnosis/Indication Diagnosis SNOMED-CT Code Diagnosis ICD10 Code Diagnosis Note [id number] Antwon Munguia MD [facility] Arsh chapa [address] [place] [address] [place] [address] 09/23/2021 00:00:00 09/23/2021 21:56:44 [id number] Antwon Munguia MD [facility] Arsh chapa [address] [place] [address] [place] [address] 12/01/2021 00:00:00 12/01/2021 21:58:59 [id number] Antwon Munguia MD [facility] Bretvi lljc [address] [place] [address] [place] [address] 09/30/2022 00:00:00 09/30/2022 21:21:10 [id number] Antwon Munguia MD [facility] Arsh chapa [address] [place] [address] [place] [address] 12/23/2022 00:00:00 12/23/2022 21:47:12 [id number] Antwon Munguia MD [facility] Arsh chapa [address] [place] [address] [place] [address] 05/14/2023 09:07:10 05/14/2023 09:32:22 Prediabetes 990042712 R73.03 A1C is 6%. continue metformin. Watch carbs. Upper resp iratory infection 67072653 J06.9 SxRx and simply saline nasal spray and hot packs to face [id number] Antwon Munguia MD [facility]ard [facility] [place] [address] 09/15/2023 12:25:04 09/15/2023 13:10:18 Blepharitis of right eyelid 5854911469 11003 H01.003 Warm compresses Zyrtec to use. Let me know how she is doing in 2 days if no better may need oral antibiotic Chalazion of upper eyelid 247206252 H00.19 May need oral antibiotic s if no better. [id number] Antwon Munguia MD [facility] [address] [facility] [place] [address] 11/17/2023 10:24:29 11/17/2023 10:45:32 [facility] 77768837 E78.5 Health Concerns Section Related Observation LastModified by Organization Detai ls LastModified Time None Recorded Concern Status LastModified by Organization Details LastModified Time None Recorded Advance Directives Directive None Recorded Payers Insurance Date Sequence Insurance Name Policy Number Policy De Paz Covered Member ID De Paz Member ID Guarantor Name 11/17/2023 1 [id number] Miladys Prado [id number] Miladys Prado 11/30/[address] [facility] (MEDICARE REPLACEMENT/A DVANTAGE - HMO) [id number] Miladys Prado [id number] Miladys Prado OBGyn Episode No OBEpisode recorded.
== END 2025-06-18 15:16 | disposition home or self-care (01) ==
PROVIDERS: PCP Nurse Practitioner; Visit Provider Obstetrics & Gynecology Gynecology
DX: Z12.31 Encounter for screening mammogram for malignant neoplasm of breast (principal)
CPT/HCPCS: 77063; 77067

== ENCOUNTER 2025-08-09 14:26 | Outpatient (NON) | payer MEDICARE, SELFPAY ==
--- OUTSIDE RECORDS SUMMARY | 2025-08-09 14:31 | XMS_ITS | Clinical Summary ---
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
[2025-08-09 19:00] LABS: Add Urine Microscopic? NO; Appearance Urine Clear (Clear); Glucose Urine UA Negative (Negative); Leukocyte Esterase Ur Negative LEU/UL (Negative); Nitrate Urine Negative (Negative); Specific Grav Ur 1.008 (1.001-1.035)
== END 2025-08-09 14:27 | disposition home or self-care (01) ==
LOC: ANHGOSHLAB 14:27
PROVIDERS: PCP Internal Medicine; Visit Provider Nurse Practitioner
DX: N39.0 Urinary tract infection, site not specified (principal)
CPT/HCPCS: 81003

== ENCOUNTER 2025-09-10 08:28 | Outpatient (CLI) | payer MEDICARE, SELFPAY ==
[2025-09-10 13:10] LABS: Add Urine Microscopic? NO; Appearance Urine Clear (Clear); Glucose Urine UA Negative (Negative); Leukocyte Esterase Ur Negative LEU/UL (Negative); Nitrate Urine Negative (Negative); Specific Grav Ur 1.007 (1.001-1.035)
== END 2025-09-10 08:29 | disposition home or self-care (01) ==
LOC: ANHGOSHLAB 08:28
PROVIDERS: PCP Internal Medicine; Visit Provider Nurse Practitioner
DX: R82.90 Unspecified abnormal findings in urine (principal)
CPT/HCPCS: 81003

== ENCOUNTER 2025-09-19 08:20 | Outpatient (CLI) | payer MEDICARE, SELFPAY ==
--- OUTSIDE RECORDS SUMMARY | 2025-09-19 08:33 | XMS_ITS | Clinical Summary ---
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
--- OUTSIDE RECORDS SUMMARY | 2025-09-19 08:33 | XMS_ITS | Clinical Summary ---
Author Organization [facility] Address [address] [place] [address] Care Team Providers Care Optical Mechanic Apprentice Name Role Phone None, Provider MD Primary Care Provider Unavaila ble Social History Tobacco Use Types Packs/Day Years [...] Dexa Scan (General) 2023 COVID-19 Vaccine ( season) 2025 05/12/2022, 07/01/2021, 06/10/2021 Influenza Adult (#1) 2025 10/12/2024, 09/30/2022, 09/24/2021, Additional history exists DTaP, Tdap and Td Vaccines (2 - Td or Tdap) 09/19/2029 09/19/2019 RSV Immunization or 60+ Years (1 - 1-dose 75+ series) 2033 Hepatitis A Vaccines Aged Out No long er eligible based on patient's age to complete this topic Meningococcal B Vaccine Aged Out No l onger eligible based on patient's age to complete this topic Meningococcal Vaccine Aged Out No francois sharon eligible based on patient's age to complete this topic RSV Immunizations Under 20 Months Aged Out No longer eligible based on patient's age to complete this topic Insurance MED REPLACE [facility] MEDICARE SOLUTIONS Care Teams Optical Mechanic Apprentice Relationship Specialty Start Date End Date None, Provider, PCP - General UNKNOWN PHYSICIAN SPECIALTY 05/11/25
[2025-09-19 13:24] LABS: Alanine Aminotransferase 14 U/L (6-35); Albumin Level 4.8 g/dL (3.5-5.1); Alkaline Phosphatase 67 U/L (38-126); Anion Gap 10 mmol/L (4-12); Aspartate Amino Transferase 28 U/L (14-36); Bilirubin,Total 0.5 mg/dL (0.2-1.3); Blood Urea Nitrogen 12 mg/dL (7-17); Calcium 9.6 mg/dL (8.4-10.2); Carbon Dioxide 30 mmol/L (22-30); Chloride 98 mmol/L (98-107); Estimated Glomerular Filt Rate > 60; Glucose 80 mg/dL (65-110); Potassium 3.6 mmol/L (3.4-5.0); Sodium 138 mmol/L (137-145); Total Protein 8.0 g/dL (6.3-8.2)
[2025-09-19 14:38] LABS: Hemoglobin A1C 5.7 % (<5.7)
== END 2025-09-19 08:21 | disposition home or self-care (01) ==
LOC: ANHGOSHLAB 08:21
PROVIDERS: PCP Internal Medicine; Visit Provider Nurse Practitioner
DX: R73.03 Prediabetes (principal)
CPT/HCPCS: 36415; 80053; 83036